=== PATIENT | male | born 1995 | race Caucasian/White ===

== ENCOUNTER 2019-03-21 11:55 | Inpatient (IN) | payer OTHER ==
[2019-03-21 12:55] LABS: Glucose,Whole Blood 405 mg/dL (75-99)
[2019-03-21] MEDS ORDERED: SODIUM CHLORIDE 0.9% 1,000 ML IV STA ×2 (13:00)
[2019-03-21] MEDS ORDERED: SODIUM CHLORIDE 0.9% 1,000 ML IV SCH (13:00)
[2019-03-21] MEDS: ONDANSETRON 4 MG/2 ML VIAL IVP STA ×2 (13:07→18:02)
--- NOTE | 2019-03-21 13:11 | ED ---
Nausea/Vomiting/Diarrhea HPI - General Source: patient, RN notes reviewed, old records reviewed Mode of arrival: ambulatory Limitations: no limitations <Laurita Duarte - Last Filed: 03/21/19 15:21> <Frances Jung - Last Filed: 03/22/19 22:02> - General Chief complaint: Nausea/Vomiting/Diarrhea Stated complaint: vomiting/diabetic Time Seen by Provider: 03/21/19 12:49 - History of Present Illness Initial comments: 23-year-old male presents emergency department today for evaluation for nausea and vomiting, abnormal blood sugars. Patient reports that he isn't vomiting for the past 2 days. He is a diabetic. Type I since age 11. He manages with insulin injections. Patient states that his diabetes has been managed by his primary care doctor Dr. Perez. He states that he thinks that he started having nausea and vomiting after being treated for a dental infection. He reports he followed with a dentist and had upper left molar drained from an abscess. Patient states that he had been swallowing a lot of pus afterwards. Patient states that he last took his blood sugar was 450 prior to arrival. Patient has never been in DKA before. (Laurita Duarte) - Related Data Home Medications Medication Instructions Recorded Confirmed Amoxicillin 500 mg PO QID 03/21/19 03/21/19 Previous Rx's Medication Instructions Recorded Famotidine [Pepcid] 20 mg PO BID #28 tablet 03/22/19 Insulin NPH/Reg Insulin 70/30 12 unit SQ AC-SUPPER #1 vial 03/22/19 [humuLIN 70/30 VIAL] Insulin NPH/Reg Insulin 70/30 18 unit SQ AC-BRKFST #1 vial 03/22/19 [humuLIN 70/30 VIAL] Ondansetron Odt [Zofran Odt] 4 mg PO Q8HR PRN #12 tab 03/22/19 Allergies Allergy/AdvReac Type Severity Reaction Status Date / Time No Known Allergies Allergy Verified 03/21/19 12:47 Review of Systems ROS Other: All systems not noted in ROS Statement are negative. <Laurita Duarte - Last Filed: 03/21/19 15:21> ROS Other: All systems not noted in ROS Statement are negative. <Frances Jung - Last Filed: 03/22/19 22:02> ROS Statement: Those systems with pertinent positive or pertinent negative responses have been documented in the HPI. Past Medical History Past Medical History: Diabetes Mellitus History of Any Multi-Drug Resistant Organisms: None Reported Past Surgical History: No Surgical Hx Reported Past Psychological History: No Psychological Hx Reported Smoking Status: Former smoker Past Alcohol Use History: Occasional Past Drug Use History: Marijuana <Laurita Duarte - Last Filed: 03/21/19 15:21> General Exam Limitations: no limitations General appearance: alert, in no apparent distress Head exam: Present: atraumatic, normocephalic, normal inspection Eye exam: Present: normal appearance, PERRL, EOMI. Absent: scleral icterus, conjunctival injection, periorbital swelling ENT exam: Present: mucous membranes dry, mucous membranes moist, other (No sign of dental abscess at this time.). Absent: normal exam Neck exam: Present: normal inspection. Absent: tenderness, meningismus, lymphadenopathy Respiratory exam: Present: normal lung sounds bilaterally. Absent: respiratory distress, wheezes, rales, rhonchi, stridor Cardiovascular Exam: Present: regular rate, normal rhythm, normal heart sounds. Absent: systolic murmur, diastolic murmur, rubs, gallop, clicks GI/Abdominal exam: Present: soft, normal bowel sounds. Absent: distended, tenderness, guarding, rebound, rigid Extremities exam: Present: normal inspection, full ROM, normal capillary refill. Absent: tenderness, pedal edema, joint swelling, calf tenderness Back exam: Present: normal inspection Neurological exam: Present: alert, oriented X3, CN II-XII intact Psychiatric exam: Present: normal affect, normal mood Skin exam: Present: warm, dry, intact, normal color. Absent: rash <Laurita Duarte - Last Filed: 03/21/19 15:21> - General Exam Comments Initial Comments: 23-year-old male. Alert and oriented. No distress. (Laurita Duarte) Course Vital Signs 03/21/19 03/21/19 12:47 17:17 Temperature 97.9 F 97.8 F Pulse Rate 118 H 105 H Respiratory 18 18 Rate Blood Pressure 127/102 143/79 O2 Sat by Pulse 99 99 Oximetry Medical Decision Making - Lab Data Result diagrams: 03/21/19 13:03 03/21/19 13:03 <Laurita Duarte - Last Filed: 03/21/19 15:21> - Lab Data Result diagrams: 03/22/19 05:59 03/22/19 05:59 <Frances Jung - Last Filed: 03/22/19 22:02> - Medical Decision Making Patient is a 23-year-old male with history of diabetes. Nausea and vomiting for the past 2 days. He rise really dehydrated. Started on IV fluids, concern for DKA. Patient is acetone positive. Was placed on insulin bolus and drip. Patient has a resting comfortably but is tolerating by mouth intake at this time after Zofran. Patient case was discussed with Dr. Jung discussed case with Dr. sarkar's well and Patient will be agreeable to admission. Patient was admitted to telemetry. (Laurita Duarte) I was available for consultation in the emergency department. The history and physical exam were done by the midlevel provider. I was consulted for this kendell ents care. I reviewed the case with the midlevel provider and based on their presentation of the patient, I agree with the assessment, medical decision making and plan of care as documented. I discussed the case with Dr. Malcolm who accepted admission of the patient. Chart was dictated using [employer] dictation software. Attempts were made to correct any dictation errors however some typographical errors may persist. (Frances Jung) - Lab Data Lab Results 03/21/19 03/21/19 03/21/19 Range/Units 12:54 13:03 13:03 WBC (3.8-10.6) k/uL RBC (4.30-5.90) m/uL Hgb (13.0-17.5) gm/dL Hct (39.0-53.0) % MCV (80.0-100.0) fL MCH (25.0-35.0) pg MCHC (31.0-37.0) g/dL RDW (11.5-15.5) % Plt Count (150-450) k/uL Neutrophils % % Lymphocytes % % Monocytes % % Eosinophils % % Basophils % % Neutrophils # (1.3-7.7) k/uL Lymphocytes # (1.0-4.8) k/uL Monocytes # (0-1.0) k/uL Eosinophils # (0-0.7) k/uL Basophils # (0-0.2) k/uL VBG pH 7.47 H (7.31-7.41) VBG pCO2 28 L (37-51) mmHg VBG HCO3 20 L (24-28) mmol/L Sodium 136 L (137-145) mmol/L Potassium 5.1 (3.5-5.1) mmol/L Chloride 94 L (98-107) mmol/L Carbon Dioxide 16 L (22-30) mmol/L Anion Gap 26 mmol/L BUN 25 H (9-20) mg/dL Creatinine 1.12 (0.66-1.25) mg/dL Est GFR (CKD-EPI)AfAm >90 (>60 ml/min/1.73 sqM) Est GFR (CKD-EPI)NonAf >90 (>60 ml/min/1.73 sqM) Glucose 389 H (74-99) mg/dL POC Glucose (mg/dL) 405 H (75-99) mg/dL POC Glu Chemical Process Analyst ID MatosLisbet Lactic Ac Sepsis Rflx Plasma Lactic Acid William (0.7-2.0) mmol/L Calcium 10.4 H (8.4-10.2) mg/dL Total Bilirubin 1.1 (0.2-1.3) mg/dL AST 40 (17-59) U/L ALT 24 (4-49) U/L Alkaline Phosphatase 134 H (38-126) U/L Total Protein 8.2 (6.3-8.2) g/dL Albumin 5.0 (3.5-5.0) g/dL Amylase 53 (30-110) U/L Lipase 25 (23-300) U/L Urine Color Urine Appearance (Clear) Urine pH (5.0-8.0) Ur Specific [place] (1.001-1.035) Urine Protein (Negative) Urine Glucose (UA) (Negative) Urine Ketones (Negative) Urine Blood (Negative) Urine Nitrite (Negative) Urine Bilirubin (Negative) Urine Urobilinogen (<2.0) mg/dL Ur Leukocyte Esterase (Negative) Urine RBC (0-5) /hpf Urine WBC (0-5) /hpf Hyaline Casts (0-2) /lpf Granular Casts (0) /lpf Urine Mucus (None) /hpf Acetone, Qual Positive (Negative) 03/21/19 03/21/19 03/21/19 Range/Units 13:03 13:03 13:03 WBC 18.5 H (3.8-10.6) k/uL RBC 5.59 (4.30-5.90) m/uL Hgb 17.9 H (13.0-17.5) gm/dL Hct 53.6 H (39.0-53.0) % MCV 96.0 (80.0-100.0) fL MCH 32.0 (25.0-35.0) pg MCHC 33.4 (31.0-37.0) g/dL RDW 12.9 (11.5-15.5) % Plt Count 333 (150-450) k/uL Neutrophils % 88 % Lymphocytes % 8 % Monocytes % 3 % Eosinophils % 1 % Basophils % 0 % Neutrophils # 16.2 H (1.3-7.7) k/uL Lymphocytes # 1.5 (1.0-4.8) k/uL Monocytes # 0.5 (0-1.0) k/uL Eosinophils # 0.2 (0-0.7) k/uL Basophils # 0.0 (0-0.2) k/uL VBG pH (7.31-7.41) VBG pCO2 (37-51) mmHg VBG HCO3 (24-28) mmol/L Sodium (137-145) mmol/L Potassium (3.5-5.1) mmol/L Chloride (98-107) mmol/L Carbon Dioxide (22-30) mmol/L Anion Gap mmol/L BUN (9-20) mg/dL Creatinine (0.66-1.25) mg/dL Est GFR (CKD-EPI)AfAm (>60 ml/min/1.73 sqM) Est GFR (CKD-EPI)NonAf (>60 ml/min/1.73 sqM) Glucose (74-99) mg/dL POC Glucose (mg/dL) (75-99) mg/dL POC Glu Chemical Process Analyst ID Lactic Ac Sepsis Rflx Plasma Lactic Acid William 3.4 H* (0.7-2.0) mmol/L Calcium (8.4-10.2) mg/dL Total Bilirubin (0.2-1.3) mg/dL AST (17-59) U/L ALT (4-49) U/L Alkaline Phosphatase (38-126) U/L Total Protein (6.3-8.2) g/dL Albumin (3.5-5.0) g/dL Amylase (30-110) U/L Lipase (23-300) U/L Urine Color Yellow Urine Appearance Clear (Clear) Urine pH 5.5 (5.0-8.0) Ur Specific [place] 1.033 (1.001-1.035) Urine Protein 1+ H (Negative) Urine Glucose (UA) 4+ H (Negative) Urine Ketones 4+ H (Negative) Urine Blood Small H (Negative) Urine Nitrite Negative (Negative) Urine Bilirubin Negative (Negative) Urine Urobilinogen 2.0 (<2.0) mg/dL Ur Leukocyte Esterase Negative (Negative) Urine RBC 7 H (0-5) /hpf Urine WBC 1 (0-5) /hpf Hyaline Casts 9 H (0-2) /lpf Granular Casts 4 (0) /lpf Urine Mucus Rare H (None) /hpf Acetone, Qual (Negative) 03/21/19 03/21/19 Range/Units 13:40 14:44 WBC (3.8-10.6) k/uL RBC (4.30-5.90) m/uL Hgb (13.0-17.5) gm/dL Hct (39.0-53.0) % MCV (80.0-100.0) fL MCH (25.0-35.0) pg MCHC (31.0-37.0) g/dL RDW (11.5-15.5) % Plt Count (150-450) k/uL Neutrophils % % Lymphocytes % % Monocytes % % Eosinophils % % Basophils % % Neutrophils # (1.3-7.7) k/uL Lymphocytes # (1.0-4.8) k/uL Monocytes # (0-1.0) k/uL Eosinophils # (0-0.7) k/uL Basophils # (0-0.2) k/uL VBG pH (7.31-7.41) VBG pCO2 (37-51) mmHg VBG HCO3 (24-28) mmol/L Sodium (137-145) mmol/L Potassium (3.5-5.1) mmol/L Chloride (98-107) mmol/L Carbon Dioxide (22-30) mmol/L Anion Gap mmol/L BUN (9-20) mg/dL Creatinine (0.66-1.25) mg/dL Est GFR (CKD-EPI)AfAm (>60 ml/min/1.73 sqM) Est GFR (CKD-EPI)NonAf (>60 ml/min/1.73 sqM) Glucose (74-99) mg/dL POC Glucose (mg/dL) 215 H (75-99) mg/dL POC Glu Chemical Process Analyst ID Lisbet Matos Lactic Ac Sepsis Rflx Y Plasma Lactic Acid William (0.7-2.0) mmol/L Calcium (8.4-10.2) mg/dL Total Bilirubin (0.2-1.3) mg/dL AST (17-59) U/L ALT (4-49) U/L Alkaline Phosphatase (38-126) U/L Total Protein (6.3-8.2) g/dL Albumin (3.5-5.0) g/dL Amylase (30-110) U/L Lipase (23-300) U/L Urine Color Urine Appearance (Clear) Urine pH (5.0-8.0) Ur Specific [place] (1.001-1.035) Urine Protein (Negative) Urine Glucose (UA) (Negative) Urine Ketones (Negative) Urine Blood (Negative) Urine Nitrite (Negative) Urine Bilirubin (Negative) Urine Urobilinogen (<2.0) mg/dL Ur Leukocyte Esterase (Negative) Urine RBC (0-5) /hpf Urine WBC (0-5) /hpf Hyaline Casts (0-2) /lpf Granular Casts (0) /lpf Urine Mucus (None) /hpf Acetone, Qual (Negative) Disposition Is patient prescribed a controlled substance at d/c from ED?: No Time of Disposition: 15:22 <Laurita Duarte - Last Filed: 03/21/19 15:21> <Frances Jung - Last Filed: 03/22/19 22:02> Clinical Impression: DKA (diabetic ketoacidoses), Dehydration Disposition: ADMITTED IP TO THIS HOSP Condition: Stable
[2019-03-21 13:19] LABS: Basophils % (A) 0 %; Eosinophils # (A) 0.2 k/uL (0-0.7); Eosinophils % (A) 1 %; HCT 53.6 % (39.0-53.0); HGB 17.9 gm/dL (13.0-17.5); Lymphocytes # (A) 1.5 k/uL (1.0-4.8); Lymphocytes % (A) 8 %; MCHC 33.4 g/dL (31.0-37.0); Monocytes # (A) 0.5 k/uL (0-1.0); Monocytes % (A) 3 %; Neutrophils # (A) 16.2 k/uL (1.3-7.7); Neutrophils % (A) 88 %; Platelet Count 333 k/uL (150-450); RBC 5.59 m/uL (4.30-5.90); RDW 12.9 % (11.5-15.5); VBG PH 7.47 (7.31-7.41); WBC 18.5 k/uL (3.8-10.6)
[2019-03-21 13:28] LABS: ALT 24 U/L (4-49); African American GFR (CKD) >90 (>60 ml/min/1.73 sqM); Amylase 53 U/L (30-110); Anion Gap 26 mmol/L; Blood Urea Nitrogen 25 mg/dL (9-20); Calcium 10.4 mg/dL (8.4-10.2); Carbon Dioxide 16 mmol/L (22-30); Chloride 94 mmol/L (98-107); Glucose 389 mg/dL (74-99); Non-African American GFR(CKD) >90 (>60 ml/min/1.73 sqM); Sodium 136 mmol/L (137-145); Total Bilirubin 1.1 mg/dL (0.2-1.3); Total Protein 8.2 g/dL (6.3-8.2)
[2019-03-21 13:32] LABS: Appearance,Urine Clear (Clear); Bilirubin,Urine Negative (Negative); Blood,Urine Small (Negative); Color,Urine Yellow; Glucose,Urine (UA) 4+ (Negative); Granular Casts,Urine 4 /lpf (0); Hyaline Casts,Urine 9 /lpf (0-2); Leukocyte Esterase,Urine Negative (Negative); Mucus,Urine Rare /hpf; Nitrite,Urine Negative (Negative); PH, Urine 5.5 (5.0-8.0); Protein,Urine 1+ (Negative); RBC,Urine 7 /hpf (0-5); Specific Gravity,Urine 1.033 (1.001-1.035); WBC,Urine 1 /hpf (0-5)
[2019-03-21 13:37] LABS: AST 40 U/L (17-59); Alkaline Phosphatase 134 U/L (38-126); Ketones,Urine 4+ (Negative); Potassium 5.1 mmol/L (3.5-5.1)
[2019-03-21] MEDS ORDERED: INSULIN REGULAR BOLUS (FROM DRIP BAG) IV ONE (14:22)
[2019-03-21] MEDS ORDERED: INSULIN REGULAR 100 UNIT in SODIUM CHLORIDE 0.9% 100 ML IV SCH (14:30)
[2019-03-21 14:45] LABS: Glucose,Whole Blood 215 mg/dL (75-99)
[2019-03-21] MEDS: D5-0.45% NACL WITH KCL 20MEQ/L 1,000 ML IV SCH (15:11)
[2019-03-21 15:54] LABS: Glucose,Whole Blood 277 mg/dL (75-99)
[2019-03-21 17:18] LABS: Glucose,Whole Blood 200 mg/dL (75-99)
[2019-03-21 17:20] LABS: African American GFR (CKD) >90 (>60 ml/min/1.73 sqM); Anion Gap 10 mmol/L; Blood Urea Nitrogen 22 mg/dL (9-20); Carbon Dioxide 28 mmol/L (22-30); Chloride 100 mmol/L (98-107); Glucose 202 mg/dL (74-99); Non-African American GFR(CKD) >90 (>60 ml/min/1.73 sqM); Phosphorus 2.2 mg/dL (2.5-4.5); Potassium 3.9 mmol/L (3.5-5.1); Sodium 138 mmol/L (137-145)
[2019-03-21 18:47] LABS: Glucose,Whole Blood 139 mg/dL (75-99)
[2019-03-21 19:45] LABS: Glucose,Whole Blood 140 mg/dL (75-99)
[2019-03-21 21:00] LABS: Glucose,Whole Blood 121 mg/dL (75-99)
[2019-03-21 21:09] LABS: Glucose,Whole Blood 119 mg/dL (75-99)
[2019-03-21 21:51] LABS: African American GFR (CKD) >90 (>60 ml/min/1.73 sqM); Anion Gap 8 mmol/L; Blood Urea Nitrogen 19 mg/dL (9-20); Carbon Dioxide 29 mmol/L (22-30); Chloride 100 mmol/L (98-107); Glucose 131 mg/dL (74-99); Non-African American GFR(CKD) >90 (>60 ml/min/1.73 sqM); Phosphorus 2.3 mg/dL (2.5-4.5); Potassium 3.7 mmol/L (3.5-5.1); Sodium 137 mmol/L (137-145)
[2019-03-21 21:58] LABS: Glucose,Whole Blood 131 mg/dL (75-99)
--- NOTE | 2019-03-21 22:26 | P.HPIM ---
History of Present Illness H&P Date: 03/21/19 Chief Complaint: Nausea and vomiting Patient is a 23-year-old male who follows with Dr. Krishna as an outpatient, with a known history of diabetes type 1 since is 11 and recent history of dental abscess status post drainage on last came to ER with complaints of nausea vomiting and elevated blood sugars. Patient has not been tolerating oral diet for the past 2 days. Patient is having intractable nausea vomiting. Denied any abdominal pain. Patient is also not taking insulin injections has prescribed. Patient states that he takes 10 units of insulin before each meal. denied any long-acting insulin use. He states that he thinks that he started having nausea and vomiting after being treated for a dental infection. He reports he followed with a dentist and had upper left molar drained from an abscess. Patient states that he had been swallowing a lot of pus afterwards. Patient states that he last took his blood sugar was 450 prior to arrival. Patient has never been in DKA before. WBC 18.5, anion gap 20, bicarb 16 and lactic acidosis 3.4 patient was hyperglycemic and acetone positive Review of Systems Constitutional: Patient denies any fever or chills . No generalized weakness or weight loss. Abdomen: Patient does have nausea vomiting and denied abdominal pain. No diarrhea Cardiovascular: Patient denies any chest pain or short of breath no palpitations. Respiratory: patient denied any cough is from production. No shortness of breath Neurologic: Patient denied any numbness or tingling headache. Musculoskeletal: Patient denies any complaints of joint swelling or deformity. Skin: Negative Psychiatric: Negative Endocrine: No heat or cold intolerance. No recent weight gain. Genitourinary: No dysuria or hematuria. All other 14 point ROS negative except the above Past Medical History Past Medical History: Diabetes Mellitus History of Any Multi-Drug Resistant Organisms: None Reported Past Surgical History: No Surgical Hx Reported Past Psychological History: No Psychological Hx Reported Smoking Status: Former smoker Past Alcohol Use History: Occasional Past Drug Use History: Marijuana - Past Family History Father Family Medical History: Diabetes Mellitus Additional Family Medical History / Comment(s): Father from Diabetic complications Medications and Allergies Home Medications Medication Instructions Recorded Confirmed Type Amoxicillin 500 mg PO QID 03/21/19 03/21/19 History Insulin Lispro [Admelog] See Protocol SQ AC-TID 03/21/19 03/21/19 History Allergies Allergy/AdvReac Type Severity Reaction Status Date / Time No Known Allergies Allergy Verified 03/21/19 12:47 Physical Exam Vitals: Vital Signs Temp Pulse Resp BP Pulse Ox 03/21/19 12:47 97.9 F 118 H 18 127/102 99 Intake and Output 03/21/19 03/21/19 03/21/19 06:59 14:59 22:59 Other: Weight 61.235 kg PHYSICAL EXAMINATION: Patient is lying in the bed comfortably, no acute distress, awake alert and oriented. Lethargic and tired. HEENT: Normocephalic. Neck is supple. Pupils reactive. Nostrils clear. Oral cavity is moist. Ears reveal no drainage. Neck reveals no JVD, carotid bruits, or thyromegaly. CHEST EXAMINATION: Trachea is central. Symmetrical expansion. Lung mari clear to auscultation and percussion. CARDIAC: Normal S1, S2 with no gallops. No murmurs ABDOMEN: Soft. Bowel sounds normal. No organomegaly. No abdominal bruits. Extremities: reveal no edema. No clubbing or cyanosis Neurologically awake, alert, oriented x3 with well-coordinated movements. No focal deficits noted Skin: No rash or skin lesions. Psychiatric: Coperative. Nonsuicidal Musculoskeletal: No joint swelling or deformity. Normal range of motion. Results CBC & Chem 7: 03/21/19 13:03 03/21/19 21:23 Labs: Abnormal Lab Results - Last 24 Hours (Table) 03/21/19 03/21/19 03/21/19 Range/Units 12:54 13:03 13:03 WBC (3.8-10.6) k/uL Hgb (13.0-17.5) gm/dL Hct (39.0-53.0) % Neutrophils # (1.3-7.7) k/uL VBG pH 7.47 H (7.31-7.41) VBG pCO2 28 L (37-51) mmHg VBG HCO3 20 L (24-28) mmol/L Sodium 136 L (137-145) mmol/L Chloride 94 L (98-107) mmol/L Carbon Dioxide 16 L (22-30) mmol/L BUN 25 H (9-20) mg/dL Glucose 389 H (74-99) mg/dL POC Glucose (mg/dL) 405 H (75-99) mg/dL Plasma Lactic Acid William (0.7-2.0) mmol/L Calcium 10.4 H (8.4-10.2) mg/dL Alkaline Phosphatase 134 H (38-126) U/L Urine Protein (Negative) Urine Glucose (UA) (Negative) Urine Ketones (Negative) Urine Blood (Negative) Urine RBC (0-5) /hpf Hyaline Casts (0-2) /lpf Urine Mucus (None) /hpf 03/21/19 03/21/19 03/21/19 Range/Units 13:03 13:03 13:03 WBC 18.5 H (3.8-10.6) k/uL Hgb 17.9 H (13.0-17.5) gm/dL Hct 53.6 H (39.0-53.0) % Neutrophils # 16.2 H (1.3-7.7) k/uL VBG pH (7.31-7.41) VBG pCO2 (37-51) mmHg VBG HCO3 (24-28) mmol/L Sodium (137-145) mmol/L Chloride (98-107) mmol/L Carbon Dioxide (22-30) mmol/L BUN (9-20) mg/dL Glucose (74-99) mg/dL POC Glucose (mg/dL) (75-99) mg/dL Plasma Lactic Acid William 3.4 H* (0.7-2.0) mmol/L Calcium (8.4-10.2) mg/dL Alkaline Phosphatase (38-126) U/L Urine Protein 1+ H (Negative) Urine Glucose (UA) 4+ H (Negative) Urine Ketones 4+ H (Negative) Urine Blood Small H (Negative) Urine RBC 7 H (0-5) /hpf Hyaline Casts 9 H (0-2) /lpf Urine Mucus Rare H (None) /hpf 03/21/19 03/21/19 Range/Units 14:44 15:52 WBC (3.8-10.6) k/uL Hgb (13.0-17.5) gm/dL Hct (39.0-53.0) % Neutrophils # (1.3-7.7) k/uL VBG pH (7.31-7.41) VBG pCO2 (37-51) mmHg VBG HCO3 (24-28) mmol/L Sodium (137-145) mmol/L Chloride (98-107) mmol/L Carbon Dioxide (22-30) mmol/L BUN (9-20) mg/dL Glucose (74-99) mg/dL POC Glucose (mg/dL) 215 H 277 H (75-99) mg/dL Plasma Lactic Acid William (0.7-2.0) mmol/L Calcium (8.4-10.2) mg/dL Alkaline Phosphatase (38-126) U/L Urine Protein (Negative) Urine Glucose (UA) (Negative) Urine Ketones (Negative) Urine Blood (Negative) Urine RBC (0-5) /hpf Hyaline Casts (0-2) /lpf Urine Mucus (None) /hpf Thrombosis Risk Factor Assmnt - DVT/VTE Prophylaxis DVT/VTE Prophylaxis: Pharmacologic Prophylaxis ordered Assessment and Plan Assessment: Acute diabetic ketoacidosis Hyperglycemia with uncontrolled diabetes type 1. Patient states that she is not taking insulin as prescribed. AG Metabolic acidosis Lactic acidosis Previous history of smoking Occasional marijuana use Leukocytosis likely reactive and also due to previous recent dental abscess. DVT prophylaxis Plan: Patient will be continued on IV hydration and also on insulin drip. Monitor lites every 4 hours. Continue with potassium supplementation and follow closely. Patient will be continued on antibiotics in the form of clindamycin. Patient is taking amoxicillin as an outpatient. Follow up closely. Discussed treatment plan with the patient and his mother at bedside. Further recommendations based on the clinical course. Time with Patient: Greater than 30
[2019-03-21] MEDS ORDERED: 0.9% NACL WITH KCL 20 MEQ/L 1,000 ML IV ONE (23:12)
[2019-03-22] MEDS: INSULIN DETEMIR (LEVEMIR) 100 UNIT/ML SYR SQ SCH ×2 (01:00→17:13)
[2019-03-22] MEDS: FAMOTIDINE 20 MG/2 ML VIAL IV SCH ×2 (01:06→08:13)
[2019-03-22] MEDS: ONDANSETRON 4 MG/2 ML VIAL IVP PRN ×2 (01:06→08:13)
[2019-03-22] MEDS: CLINDAMYCIN 300 MG in DEXTROSE 5% IN WATER 50 ML IVPB SCH ×4 (01:07→08:13)
[2019-03-22 01:57] LABS: Glucose,Whole Blood 132 mg/dL (75-99)
[2019-03-22] MEDS: D5-0.45% NACL WITH KCL 20MEQ/L 1,000 ML IV SCH (02:25)
[2019-03-22 06:55] LABS: Basophils % (A) 0 %; Eosinophils # (A) 0.1 k/uL (0-0.7); Eosinophils % (A) 0 %; HCT 43.4 % (39.0-53.0); Lymphocytes # (A) 1.8 k/uL (1.0-4.8); Lymphocytes % (A) 10 %; MCH 31.8 pg (25.0-35.0); MCV 96.2 fL (80.0-100.0); Mean Platelet Volume 6.7; Monocytes # (A) 0.9 k/uL (0-1.0); Monocytes % (A) 5 %; Neutrophils # (A) 14.9 k/uL (1.3-7.7); Neutrophils % (A) 83 %; Platelet Count 281 k/uL (150-450); RBC 4.51 m/uL (4.30-5.90)
[2019-03-22 06:58] LABS: Glucose,Whole Blood 91 mg/dL (75-99)
[2019-03-22 06:59] LABS: HGB 14.3 gm/dL (13.0-17.5)
[2019-03-22] MEDS: INSULIN ASPART (NovoLOG) 100 UNIT/ML VIAL SQ SCH ×2 (07:02→12:47)
[2019-03-22 07:03] LABS: African American GFR (CKD) >90 (>60 ml/min/1.73 sqM); Anion Gap 7 mmol/L; Blood Urea Nitrogen 16 mg/dL (9-20); Carbon Dioxide 28 mmol/L (22-30); Chloride 101 mmol/L (98-107); Glucose 102 mg/dL (74-99); Non-African American GFR(CKD) >90 (>60 ml/min/1.73 sqM); Potassium 3.8 mmol/L (3.5-5.1); Sodium 136 mmol/L (137-145)
[2019-03-22 08:10] VITALS: RESP 18
[2019-03-22 12:37] LABS: Glucose,Whole Blood 137 mg/dL (75-99)
[2019-03-22 12:45] VITALS: BMI 19.1
[2019-03-22 15:33] VITALS: BP 118/62; PULSE 79; TEMP 98.9
--- NOTE | 2019-04-05 22:14 | P.DS ---
Providers Date of admission: 03/21/19 15:50 Expected date of discharge: 03/22/19 Attending physician: Chandrakant Garcia Primary care physician: Tomi Ewing [facility] Course: Discharge diagnosis Acute diabetic ketoacidosis. Resolved Hyperglycemia with uncontrolled diabetes type 1. Patient states that he is not taking insulin as prescribed. AG Metabolic acidosis Lactic acidosis Previous history of smoking Occasional marijuana use Leukocytosis likely reactive and also due to previous recent dental abscess. DVT prophylaxis Hospital course Patient is a 23-year-old male who follows with Dr. Krishna as an outpatient, with a known history of diabetes type 1 since 11 and recent history of dental abscess status post drainage on last came to ER with complaints of nausea vomiting and elevated blood sugars. Patient has not been tolerating oral diet for the past 2 days. Patient is having intractable nausea vomiting. Denied any abdominal pain. Patient is also not taking insulin injections has prescribed. Patient states that he takes 10 units of insulin before each meal. denied any long-acting insulin use. He states that he thinks that he started having nausea and vomiting after being treated for a dental infection. He reports he followed with a dentist and had upper left molar drained from an abscess. Patient states that he had been swallowing a lot of pus afterwards. Patient states that he last took his blood sugar was 450 prior to arrival. Patient has never been in DKA before. WBC 18.5, anion gap 20, bicarb 16 and lactic acidosis 3.4 patient was hyperglycemic and acetone positive. Patient was continued on IV hydration and also on insulin drip. Monitor lites every 4 hours. Continue with potassium supplementation and follow closely. Patient was continued on antibiotics in the form of clindamycin. Patient is taking amoxicillin as an outpatient. No complaints of dental pain. Discussed treatment plan with the patient and his mother at bedside. Patient was started on insulin 70/30 due to incidence issues and noncompliance. Otherwise patient is tolerating oral diet. No complaints of chest pain or shortness of breath. No nausea vomiting or abdominal pain. Patient is being discharged home today. Recommended to follow with endocrinology in the clinic. PHYSICAL EXAMINATION: Patient is lying in the bed comfortably, no acute distress, awake alert and oriented.. HEENT: Normocephalic. Neck is supple. Pupils reactive. Nostrils clear. Oral cavity is moist. Ears reveal no drainage. Neck reveals no JVD, carotid bruits, or thyromegaly. CHEST EXAMINATION: Trachea is central. Symmetrical expansion. Lung mari clear to auscultation and percussion. CARDIAC: Normal S1, S2 with no gallops. No murmurs ABDOMEN: Soft. Bowel sounds normal. No organomegaly. No abdominal bruits. Extremities: reveal no edema. No clubbing or cyanosis Neurologically awake, alert, oriented x3 with well-coordinated movements. No focal deficits noted Skin: No rash or skin lesions. Psychiatric: Coperative. Nonsuicidal Musculoskeletal: No joint swelling or deformity. Normal range of motion. Discharge vitals reviewed. Patient Condition at Discharge: Stable Plan - Discharge Summary Discharge Rx Participant: No New Discharge Prescriptions: New Insulin NPH/Reg Insulin 70/30 [humuLIN 70/30 VIAL] 18 unit SQ AC-BRKFST #1 vial Insulin NPH/Reg Insulin 70/30 [humuLIN 70/30 VIAL] 12 unit SQ AC-SUPPER #1 vial Famotidine [Pepcid] 20 mg PO BID #28 tablet Ondansetron Odt [Zofran Odt] 4 mg PO Q8HR PRN #12 tab PRN Reason: Nausea Continue Amoxicillin 500 mg PO QID Discontinued Insulin Lispro [Admelog] See Protocol SQ AC-TID Discharge Medication List Amoxicillin 500 mg PO QID 03/21/19 [History] Famotidine [Pepcid] 20 mg PO BID #28 tablet 03/22/19 [Rx] Insulin NPH/Reg Insulin 70/30 [humuLIN 70/30 VIAL] 12 unit SQ AC-SUPPER #1 vial 03/22/19 [Rx] Insulin NPH/Reg Insulin 70/30 [humuLIN 70/30 VIAL] 18 unit SQ AC-BRKFST #1 vial 03/22/19 [Rx] Ondansetron Odt [Zofran Odt] 4 mg PO Q8HR PRN #12 tab 03/22/19 [Rx] Follow up Appointment(s)/Referral(s): Kaylin Krishna MD [Primary Care Provider] - 1-2 days Discharge Disposition: HOME SELF-CARE
== END 2019-03-22 17:23 | disposition home or self-care (01) | DRG 639 ==
LOC: EC 11:55 → 3SCARD 15:50
PROVIDERS: ADMIT Internal Medicine; ATTEND Internal Medicine
DX: E10.10 Type 1 diabetes mellitus with ketoacidosis without coma (principal); E86.0 Dehydration; D72.829 Elevated white blood cell count, unspecified; Z79.4 Long term (current) use of insulin; Z79.899 Other long term (current) drug therapy; Z87.891 Personal history of nicotine dependence; Z83.3 Family history of diabetes mellitus
CPT/HCPCS: 36415; 80048; 80051; 80053; 81001; 82009; 82150; 82565; 82803; 82947; 83605; 83690; 84100; 84520; 85025; 96361; 96365; 96366; 96375; 99285

== ENCOUNTER 2020-05-03 06:53 | Inpatient (IN) | payer BC ==
[2020-05-03] MEDS ORDERED: SODIUM CHLORIDE 0.9% 1,000 ML IV STA ×2 (07:16→07:20)
[2020-05-03 07:17] LABS: Glucose,Whole Blood >600 mg/dL (75-99)
[2020-05-03] MEDS ORDERED: MORPHINE SULFATE 4 MG/ML SYRINGE IV STA (07:22)
--- NOTE | 2020-05-03 07:23 | ED ---
General Adult HPI - General Chief complaint: Shortness of Breath Stated complaint: DKA, SOB Time Seen by Provider: 05/03/20 07:00 Source: patient Mode of arrival: ambulatory Limitations: no limitations - History of Present Illness Initial comments: Dictation was produced using [employer] dictation software. please excuse any grammatical, word or spelling errors. This patient was cared for during a federal and state declared state of emergency secondary to Covid 19 Chief Complaint: 24-year-old insulin-dependent type 1 diabetic presents with concerns of DKA History of Present Illness: 54-year-old male for the last 4-5 days he has been feeling ill. Patient has been complaining of shortness of breath, diffuse abdominal pain. Patient has history of insulin-dependent diabetes. He states that he is noncompliant with his diabetic medications. Patient initially felt symptoms started 4 days ago after having a meal. He thought that his symptoms were secondary to possible food poisoning. Over the last 48-72 hours his symptoms. So progressed. He has been in DKA before. He does not have a diabetes doctor currently. Denies ever no sore throat. No constitutional symptoms. The ROS documented in this emergency department record has been reviewed and confirmed by me. Those systems with pertinent positive or negative responses have been documented in the HPI. All other systems are other negative and/or noncontributory. PHYSICAL EXAM: General Impression: Alert and oriented x3, tachypneic, smells of acetone HEENT: Normocephalic atraumatic, extra-ocular movements intact, pupils equal and reactive to light bilaterally, mucous membranes moist. Cardiovascular: Heart regular rate and rhythm Chest: 4 word sentences, no retractions, no tachypnea Abdomen: abdomen soft, non-tender, non-distended, no organomegaly Musculoskeletal: Pulses present and equal in all extremities, no peripheral edema Motor: no focal deficits noted Neurological: CN II-XII grossly intact, no focal motor or sensory deficits noted Skin: Intact with no visualized rashes Psych: Normal affect and mood ED course: 24-year-old male clinical presentation consistent with diabetic ketoacidosis.Laboratory evaluation obtained. Leukocytosis 37.1. Is unclear if this is from stress or infectious disease. Metabolic panel shows sodium 132, potassium 6.4, bicarb less than 5, elevated renal markers, glucose of 879, lactic acidosis 7.7, phosphorus of 12.9. Pending venous blood gas. Chest x-ray is nonacute. Patient given 2 boluses of IV fluids and aggressively hydrated with maintenance IV fluids. Patient started on insulin drip. Patient will be admitted to intensive care unit for severe diabetic ketoacidosis. Patient be admitted to the . EKG interpretation: Ventricular rate 133, sinus tachycardia,. Interval 1:30, QRS 104, QTC 450. No VA prolongation, no QTC prolongation, there is hyperacute T waves in precordial leads concerning for hyperkalemia - Related Data Home Medications Medication Instructions Recorded Confirmed Relion Novolin N 20 - 25 units SQ HS 05/03/20 05/03/20 Relion Novolin R 10 - 15 units SQ AC-TID 05/03/20 05/03/20 Allergies Allergy/AdvReac Type Severity Reaction Status Date / Time No Known Allergies Allergy Verified 05/03/20 07:54 Review of Systems ROS Statement: Those systems with pertinent positive or pertinent negative responses have been documented in the HPI. ROS Other: All systems not noted in ROS Statement are negative. Past Medical History Past Medical History: Diabetes Mellitus Additional Past Medical History / Comment(s): 03/19/2019 dental abscess with root canal History of Any Multi-Drug Resistant Organisms: None Reported Past Surgical History: Hernia Repair Past Anesthesia/Blood Transfusion Reactions: No Reported Reaction Past Psychological History: No Psychological Hx Reported Smoking Status: Current every day smoker Past Alcohol Use History: Occasional Past Drug Use History: Marijuana - Past Family History Father Family Medical History: Diabetes Mellitus Additional Family Medical History / Comment(s): Father from Diabetic complications General Exam Limitations: no limitations Course Vital Signs 05/03/20 05/03/20 05/03/20 06:56 08:15 09:13 Temperature 98.4 F 98.4 F Pulse Rate 67 126 H 123 H Respiratory 20 28 H 24 Rate Blood Pressure 110/62 133/70 132/68 O2 Sat by Pulse 92 L 100 100 Oximetry Medical Decision Making - Lab Data Result diagrams: 05/03/20 08:05 05/03/20 08:05 Lab Results 05/03/20 05/03/20 05/03/20 Range/Units 07:11 08:05 08:05 WBC 37.1 H (3.8-10.6) k/uL RBC 4.95 (4.30-5.90) m/uL Hgb 15.7 (13.0-17.5) gm/dL Hct 54.1 H (39.0-53.0) % MCV 109.2 H (80.0-100.0) fL MCH 31.6 (25.0-35.0) pg MCHC 29.0 L (31.0-37.0) g/dL RDW 13.3 (11.5-15.5) % Plt Count 605 H (150-450) k/uL MPV 8.0 Neutrophils % (Manual) 83 % Band Neuts % (Manual) 1 % Lymphocytes % (Manual) 7 % Monocytes % (Manual) 7 % Eosinophils % (Manual) 1 % Basophils % (Manual) 1 % Metamyelocytes % 1 % Myelocytes % 1 % Neutrophils # (Manual) 31.10 H (1.3-7.7) k/uL Lymphocytes # (Manual) 2.60 (1.0-4.8) k/uL Monocytes # (Manual) 2.60 H (0-1.0) k/uL Eosinophils # (Manual) 0.37 (0-0.7) k/uL Basophils # (Manual) 0.37 H (0-0.2) k/uL Metamyelocytes # (Man) 0.37 H (0) k/uL Myelocytes # (Manual) 0.37 H (0) k/uL Nucleated RBCs 0 (0-0) /100 WBC Manual Slide Review Performed Toxic Granulation Present Hypochromasia Marked Poikilocytosis (manual Present Macrocytosis Marked A Sodium 132 L (137-145) mmol/L Potassium 6.4 H* (3.5-5.1) mmol/L Chloride 87 L (98-107) mmol/L Carbon Dioxide <5 L* (22-30) mmol/L Anion Gap mmol/L BUN 24 H (9-20) mg/dL Creatinine 1.87 H (0.66-1.25) mg/dL Est GFR (CKD-EPI)AfAm 57 (>60 ml/min/1.73 sqM) Est GFR (CKD-EPI)NonAf 49 (>60 ml/min/1.73 sqM) Glucose 879 H* (74-99) mg/dL POC Glucose (mg/dL) >600 H (75-99) mg/dL POC Glu Lab Support Service Tech ID Janiya Licea Plasma Lactic Acid William (0.7-2.0) mmol/L Calcium 9.8 (8.4-10.2) mg/dL Phosphorus 12.9 H* (2.5-4.5) mg/dL Magnesium 2.4 H (1.6-2.3) mg/dL Total Bilirubin 0.4 (0.2-1.3) mg/dL AST 25 (17-59) U/L ALT 21 (4-49) U/L Alkaline Phosphatase 133 H (38-126) U/L Total Protein 7.7 (6.3-8.2) g/dL Albumin 5.1 H (3.5-5.0) g/dL 05/03/20 05/03/20 Range/Units 08:05 09:03 WBC (3.8-10.6) k/uL RBC (4.30-5.90) m/uL Hgb (13.0-17.5) gm/dL Hct (39.0-53.0) % MCV (80.0-100.0) fL MCH (25.0-35.0) pg MCHC (31.0-37.0) g/dL RDW (11.5-15.5) % Plt Count (150-450) k/uL MPV Neutrophils % (Manual) % Band Neuts % (Manual) % Lymphocytes % (Manual) % Monocytes % (Manual) % Eosinophils % (Manual) % Basophils % (Manual) % Metamyelocytes % % Myelocytes % % Neutrophils # (Manual) (1.3-7.7) k/uL Lymphocytes # (Manual) (1.0-4.8) k/uL Monocytes # (Manual) (0-1.0) k/uL Eosinophils # (Manual) (0-0.7) k/uL Basophils # (Manual) (0-0.2) k/uL Metamyelocytes # (Man) (0) k/uL Myelocytes # (Manual) (0) k/uL Nucleated RBCs (0-0) /100 WBC Manual Slide Review Toxic Granulation Hypochromasia Poikilocytosis (manual Macrocytosis Sodium (137-145) mmol/L Potassium (3.5-5.1) mmol/L Chloride (98-107) mmol/L Carbon Dioxide (22-30) mmol/L Anion Gap mmol/L BUN (9-20) mg/dL Creatinine (0.66-1.25) mg/dL Est GFR (CKD-EPI)AfAm (>60 ml/min/1.73 sqM) Est GFR (CKD-EPI)NonAf (>60 ml/min/1.73 sqM) Glucose (74-99) mg/dL POC Glucose (mg/dL) >600 H (75-99) mg/dL POC Glu Lab Support Service Tech ID Plasma Lactic Acid William 7.7 H* (0.7-2.0) mmol/L Calcium (8.4-10.2) mg/dL Phosphorus (2.5-4.5) mg/dL Magnesium (1.6-2.3) mg/dL Total Bilirubin (0.2-1.3) mg/dL AST (17-59) U/L ALT (4-49) U/L Alkaline Phosphatase (38-126) U/L Total Protein (6.3-8.2) g/dL Albumin (3.5-5.0) g/dL Critical Care Time Critical Care Time: Yes Total Critical Care Time: 33 Disposition Clinical Impression: DKA (diabetic ketoacidoses) Disposition: ADMITTED IP TO THIS [facility] Condition: Critical Referrals: Kaylin Krishna MD [Primary Care Provider] - 1-2 days Decision Time: 09:15
--- NOTE | 2020-05-03 07:38 | XR ---
EXAMINATION TYPE: XR chest 1V portable DATE OF EXAM: 05/03/2020 COMPARISON: 07/15/2013 INDICATION: Severe short of breath TECHNIQUE: Single frontal view of the chest is obtained. FINDINGS: The heart size is normal. The pulmonary vasculature is normal. The lungs are clear. No pneumothorax is evident. IMPRESSION: 1. No acute pulmonary process.
[2020-05-03 08:24] LABS: HCT 54.1 % (39.0-53.0); HGB 15.7 gm/dL (13.0-17.5); Hypochromasia Marked; MCH 31.6 pg (25.0-35.0); MCV 109.2 fL (80.0-100.0); Macrocytosis Marked; Platelet Count 605 k/uL (150-450); RBC 4.95 m/uL (4.30-5.90); RDW 13.3 % (11.5-15.5); WBC 37.1 k/uL (3.8-10.6)
[2020-05-03 08:34] LABS: ALT 21 U/L (4-49); AST 25 U/L (17-59); African American GFR (CKD) 57 (>60 ml/min/1.73 sqM); Albumin 5.1 g/dL (3.5-5.0); Alkaline Phosphatase 133 U/L (38-126); Blood Urea Nitrogen 24 mg/dL (9-20); Calcium 9.8 mg/dL (8.4-10.2); Chloride 87 mmol/L (98-107); Magnesium 2.4 mg/dL (1.6-2.3); Non-African American GFR(CKD) 49 (>60 ml/min/1.73 sqM); Sodium 132 mmol/L (137-145); Total Bilirubin 0.4 mg/dL (0.2-1.3); Total Protein 7.7 g/dL (6.3-8.2)
[2020-05-03 08:50] LABS: Carbon Dioxide <5 mmol/L (22-30); Glucose 879 mg/dL (74-99); Phosphorus 12.9 mg/dL (2.5-4.5)
[2020-05-03] MEDS ORDERED: INSULIN REGULAR BOLUS (FROM DRIP BAG) IV ONE (08:50)
[2020-05-03 08:51] LABS: Potassium 6.4 mmol/L (3.5-5.1)
[2020-05-03 08:52] LABS: Band Neutrophils % 1 %; Metamyelocytes # (M) 0.37 k/uL (0); Metamyelocytes % 1 %; Nucleated Red Blood Cells 0 /100 WBC (0-0)
[2020-05-03 08:53] LABS: Basophils # (M) 0.37 k/uL (0-0.2); Eosinophils # (M) 0.37 k/uL (0-0.7); Myelocytes # (M) 0.37 k/uL (0); Myelocytes % 1 %; Neutrophils % (M) 83 %; Poikilocytosis (M) Present; Total Cells Counted 200; Toxic Granulation Present
[2020-05-03 09:05] LABS: Glucose,Whole Blood >600 mg/dL (75-99)
[2020-05-03] MEDS ORDERED: NALOXONE 0.4 MG/ML 1 ML VIAL IV PRN (09:13)
[2020-05-03] MEDS: SODIUM CHLORIDE 0.9% 1,000 ML IV SCH ×2 (09:17→13:28)
[2020-05-03] MEDS: INSULIN REGULAR 100 UNIT in SODIUM CHLORIDE 0.9% 100 ML IV SCH (09:20)
[2020-05-03 09:26] LABS: VBG PH 6.9 (7.31-7.41)
[2020-05-03 10:02] LABS: Glucose,Whole Blood >600 mg/dL (75-99)
[2020-05-03 11:01] LABS: Glucose,Whole Blood 593 mg/dL (75-99)
[2020-05-03 11:32] LABS: Glucose,Whole Blood 516 mg/dL (75-99)
[2020-05-03 12:23] LABS: Glucose,Whole Blood 456 mg/dL (75-99)
[2020-05-03 13:27] VITALS: BMI 21.7
[2020-05-03 13:33] LABS: Glucose,Whole Blood 301 mg/dL (75-99)
[2020-05-03] MEDS ORDERED: DEXTROSE 5%-0.9% NACL 1,000 ML IV SCH (13:45)
[2020-05-03 13:47] LABS: Potassium 4.4 mmol/L (3.5-5.1)
--- NOTE | 2020-05-03 14:12 | P.HPIM ---
History of Present Illness Patient is a pleasant 54-year-old male came in with comments of severe abdominal pain nausea vomiting for going on for 2 days. 2 days ago patient had a large meal after which his symptoms started and believed he has food poisoning. Although his symptoms progressed regards worse with multiple episodes of nausea vomiting and abdominal pain and epigastric area. Patient takes reveal insulin around 10-20 units does usually do carb counting. Patient has not been complaint with his long-acting insulin because of the insurance issues. Patient denied any dysuria cough no evidence of infection patient does have leukocytosis.. Patient the is found to be severely acidotic to Tachycardic on admission received fluid resuscitation presently receiving the IV fluids at 200 mL/h with IV insulin, one set of blood sugars come down patient will be switched to D5 half-normal saline with potassium depending on his a repeat potassium lev els. Patient was hyperkalemic on admission secondary to acidosis and diabetic ketoacidosis. Was a anion gap resolves patient was started on long-acting insulin after which patient fluids will be switched to normal saline along with pre-meal insulin around 12 units with each meal along with sliding scale. is supposed to take 50 units of long-acting insulin. He is to follow with an manifest/order organizer print orders. Patient does have early stages of diabetic peripheral neuropathy as well as retinopathy. Review of Systems REVIEW OF SYSTEMS: CONSTITUTIONAL: Patient is extremely fatigued HEENT: No recent visual problems or hearing problems. Denied any sore throat. CARDIOVASCULAR: No chest pain, orthopnea, PND, no palpitations, no syncope. PULMONARY: No shortness of breath, no cough, no hemoptysis. GASTROINTESTINAL: No diarrhea, no nausea, no vomiting, no abdominal pain. NEUROLOGICAL: No headaches, no weakness, no numbness. HEMATOLOGICAL: Denies any bleeding or petechiae. GENITOURINARY: Denies any burning micturition, frequency, or urgency. MUSCULOSKELETAL/RHEUMATOLOGICAL: Denies any joint pain, swelling, ENDOCRINE: Denies any polyuria or polydipsia. The rest of the 14-point review of systems is negative. Past Medical History Past Medical History: Diabetes Mellitus Additional Past Medical History / Comment(s): IDDM type I, DKA, occasional neuropathy bilateral hands/feet, decreased renal function at times. History of Any Multi-Drug Resistant Organisms: None Reported Past Surgical History: Hernia Repair Past Anesthesia/Blood Transfusion Reactions: No Reported Reaction Smoking Status: Current every day smoker - Past Family History Father Family Medical History: Asthma, Diabetes Mellitus Additional Family Medical History / Comment(s): Father from Diabetic complications Mother Family Medical History: No Reported History Medications and Allergies Home Medications Medication Instructions Recorded Confirmed Type Relion Novolin N 20 - 25 units SQ HS 05/03/20 05/03/20 History Relion Novolin R 10 - 15 units SQ AC-TID 05/03/20 05/03/20 History Allergies Allergy/AdvReac Type Severity Reaction Status Date / Time No Known Allergies Allergy Verified 05/03/20 07:54 Physical Exam Vitals: Vital Signs Temp Pulse Resp BP Pulse Ox 05/03/20 14:00 134 H 18 110/70 98 05/03/20 13:00 129 H 14 122/72 97 05/03/20 12:00 126 H 23 128/78 98 05/03/20 11:31 97.6 F 135 H 28 H 130/76 98 05/03/20 11:00 97.9 F 131 H 23 131/79 99 05/03/20 10:05 98.1 F 129 H 24 145/76 100 05/03/20 09:13 98.4 F 123 H 24 132/68 100 05/03/20 08:15 126 H 28 H 133/70 100 05/03/20 06:56 98.4 F 67 20 110/62 92 L Intake and Output 05/02/20 05/03/20 05/03/20 22:59 06:59 14:59 Intake Total 1026.074 Output Total 1150 Balance -123.926 Intake: Amount of Fluid Infused ( 6.187 ml) Intake, IV Titration 1019.887 Amount Insulin Regular 100 unit 19.887 In Sodium Chloride 0.9% 100 ml @ 0.1 UNITS/KG/HR 6.185 mls/hr IV .[id number] ALEISHA Rx#:[id number] Sodium Chloride 0.9% 1, 1000 000 ml @ 200 mls/hr IV . Q5H ALEISHA Rx#:[id number] Output: Urine 1150 Other: Voiding Method Urinal Weight 61.235 kg 61.235 kg PHYSICAL EXAMINATION: GENERAL: The patient is alert and oriented x3, not in any acute distress. Well developed, well nourished. HEENT: Pupils are round and equally reacting to light. EOMI. No scleral icterus. No conjunctival pallor. Normocephalic, atraumatic. No pharyngeal erythema. No thyromegaly. CARDIOVASCULAR: S1 and S2 present. No murmurs, rubs, or gallops. Tachycardic PULMONARY: Chest is clear to auscultation, no wheezing or crackles. ABDOMEN: Soft, nontender, nondistended, normoactive bowel sounds. No palpable organomegaly. MUSCULOSKELETAL: No joint swelling or deformity. EXTREMITIES: No cyanosis, clubbing, or pedal edema. NEUROLOGICAL: Gross neurological examination did not reveal any focal deficits. SKIN: No rashes. Results CBC & Chem 7: 05/03/20 08:05 05/03/20 13:00 Labs: Abnormal Lab Results - Last 24 Hours (Table) 05/03/20 05/03/20 05/03/20 Range/Units 07:11 08:05 08:05 WBC 37.1 H (3.8-10.6) k/uL Hct 54.1 H (39.0-53.0) % MCV 109.2 H (80.0-100.0) fL MCHC 29.0 L (31.0-37.0) g/dL Plt Count 605 H (150-450) k/uL Neutrophils # (Manual) 31.10 H (1.3-7.7) k/uL Monocytes # (Manual) 2.60 H (0-1.0) k/uL Basophils # (Manual) 0.37 H (0-0.2) k/uL Metamyelocytes # (Man) 0.37 H (0) k/uL Myelocytes # (Manual) 0.37 H (0) k/uL Macrocytosis Marked A VBG pH (7.31-7.41) VBG pCO2 (37-51) mmHg VBG HCO3 (24-28) mmol/L Sodium 132 L (137-145) mmol/L Potassium 6.4 H* (3.5-5.1) mmol/L Chloride 87 L (98-107) mmol/L Carbon Dioxide <5 L* (22-30) mmol/L BUN 24 H (9-20) mg/dL Creatinine 1.87 H (0.66-1.25) mg/dL Glucose 879 H* (74-99) mg/dL POC Glucose (mg/dL) >600 H (75-99) mg/dL Plasma Lactic Acid William (0.7-2.0) mmol/L Phosphorus 12.9 H* (2.5-4.5) mg/dL Magnesium 2.4 H (1.6-2.3) mg/dL Alkaline Phosphatase 133 H (38-126) U/L Albumin 5.1 H (3.5-5.0) g/dL 05/03/20 05/03/20 05/03/20 Range/Units 08:05 08:05 09:03 WBC (3.8-10.6) k/uL Hct (39.0-53.0) % MCV (80.0-100.0) fL MCHC (31.0-37.0) g/dL Plt Count (150-450) k/uL Neutrophils # (Manual) (1.3-7.7) k/uL Monocytes # (Manual) (0-1.0) k/uL Basophils # (Manual) (0-0.2) k/uL Metamyelocytes # (Man) (0) k/uL Myelocytes # (Manual) (0) k/uL Macrocytosis VBG pH 6.90 L* (7.31-7.41) VBG pCO2 16 L* (37-51) mmHg VBG HCO3 3 L* (24-28) mmol/L Sodium (137-145) mmol/L Potassium (3.5-5.1) mmol/L Chloride (98-107) mmol/L Carbon Dioxide (22-30) mmol/L BUN (9-20) mg/dL Creatinine (0.66-1.25) mg/dL Glucose (74-99) mg/dL POC Glucose (mg/dL) >600 H (75-99) mg/dL Plasma Lactic Acid William 7.7 H* (0.7-2.0) mmol/L Phosphorus (2.5-4.5) mg/dL Magnesium (1.6-2.3) mg/dL Alkaline Phosphatase (38-126) U/L Albumin (3.5-5.0) g/dL 05/03/20 05/03/20 05/03/20 Range/Units 10:01 11:00 11:05 WBC (3.8-10.6) k/uL Hct (39.0-53.0) % MCV (80.0-100.0) fL MCHC (31.0-37.0) g/dL Plt Count (150-450) k/uL Neutrophils # (Manual) (1.3-7.7) k/uL Monocytes # (Manual) (0-1.0) k/uL Basophils # (Manual) (0-0.2) k/uL Metamyelocytes # (Man) (0) k/uL Myelocytes # (Manual) (0) k/uL Macrocytosis VBG pH (7.31-7.41) VBG pCO2 (37-51) mmHg VBG HCO3 (24-28) mmol/L Sodium (137-145) mmol/L Potassium (3.5-5.1) mmol/L Chloride (98-107) mmol/L Carbon Dioxide (22-30) mmol/L BUN (9-20) mg/dL Creatinine (0.66-1.25) mg/dL Glucose (74-99) mg/dL POC Glucose (mg/dL) >600 H 593 H (75-99) mg/dL Plasma Lactic Acid William 2.3 H* (0.7-2.0) mmol/L Phosphorus (2.5-4.5) mg/dL Magnesium (1.6-2.3) mg/dL Alkaline Phosphatase (38-126) U/L Albumin (3.5-5.0) g/dL 05/03/20 05/03/20 05/03/20 Range/Units 11:30 12:22 13:00 WBC (3.8-10.6) k/uL Hct (39.0-53.0) % MCV (80.0-100.0) fL MCHC (31.0-37.0) g/dL Plt Count (150-450) k/uL Neutrophils # (Manual) (1.3-7.7) k/uL Monocytes # (Manual) (0-1.0) k/uL Basophils # (Manual) (0-0.2) k/uL Metamyelocytes # (Man) (0) k/uL Myelocytes # (Manual) (0) k/uL Macrocytosis VBG pH (7.31-7.41) VBG pCO2 (37-51) mmHg VBG HCO3 (24-28) mmol/L Sodium (137-145) mmol/L Potassium (3.5-5.1) mmol/L Chloride (98-107) mmol/L Carbon Dioxide 6 L* (22-30) mmol/L BUN 28 H (9-20) mg/dL Creatinine 1.43 H (0.66-1.25) mg/dL Glucose 374 H (74-99) mg/dL POC Glucose (mg/dL) 516 H 456 H (75-99) mg/dL Plasma Lactic Acid William (0.7-2.0) mmol/L Phosphorus 5.0 H (2.5-4.5) mg/dL Magnesium (1.6-2.3) mg/dL Alkaline Phosphatase (38-126) U/L Albumin (3.5-5.0) g/dL 05/03/20 Range/Units 13:31 WBC (3.8-10.6) k/uL Hct (39.0-53.0) % MCV (80.0-100.0) fL MCHC (31.0-37.0) g/dL Plt Count (150-450) k/uL Neutrophils # (Manual) (1.3-7.7) k/uL Monocytes # (Manual) (0-1.0) k/uL Basophils # (Manual) (0-0.2) k/uL Metamyelocytes # (Man) (0) k/uL Myelocytes # (Manual) (0) k/uL Macrocytosis VBG pH (7.31-7.41) VBG pCO2 (37-51) mmHg VBG HCO3 (24-28) mmol/L Sodium (137-145) mmol/L Potassium (3.5-5.1) mmol/L Chloride (98-107) mmol/L Carbon Dioxide (22-30) mmol/L BUN (9-20) mg/dL Creatinine (0.66-1.25) mg/dL Glucose (74-99) mg/dL POC Glucose (mg/dL) 301 H (75-99) mg/dL Plasma Lactic Acid William (0.7-2.0) mmol/L Phosphorus (2.5-4.5) mg/dL Magnesium (1.6-2.3) mg/dL Alkaline Phosphatase (38-126) U/L Albumin (3.5-5.0) g/dL Thrombosis Risk Factor Assmnt - Choose All That Apply Any of the Below Risk Factors Present?: No Other Risk Factors: No Other congenital or acquired thrombophilia - If yes, enter type in comment: No Thrombosis Risk Factor Assessment Level: Very Low Risk Assessment and Plan Plan: -Diabetic ketoacidosis: Continue with IV insulin patient was switched to D5 half-normal with the potassium supplementation considering the recent electrolytes. Extensive counseling regarding compliance with diuretic medications was provided discussed with social work regarding insurance coverage for long-acting insulin. -Anion gap and folic acidosis secondary to diabetic ketoacidosis and lactic acidosis secondary to dehydration -leukocytosis reactive without any evidence of infection -Thrombocytosis: Secondary to dehydration and hemoconcentration I from pseudohyponatremia secondary to hyperglycemia -Acute renal failure secondary to dehydration feel azotemia -Type 1 diabetes mellitus Happened ibuprofen neuropathy -Diabetic retinopathy -GI prophylaxis with the Protonix -DVT prophylaxis and early ambulation
[2020-05-03] MEDS ORDERED: PANTOPRAZOLE 40 MG/10 ML VIAL IVP SCH (14:15)
[2020-05-03] MEDS: D5-0.45% NACL WITH KCL 20MEQ/L 1,000 ML IV SCH ×2 (14:27→20:54)
[2020-05-03 14:35] LABS: Glucose,Whole Blood 218 mg/dL (75-99)
[2020-05-03 15:46] LABS: Glucose,Whole Blood 158 mg/dL (75-99)
[2020-05-03 17:01] LABS: Glucose,Whole Blood 146 mg/dL (75-99)
[2020-05-03 17:35] LABS: Hemoglobin A1C 11.9 % (4.0-6.0)
[2020-05-03 18:00] LABS: African American GFR (CKD) >90 (>60 ml/min/1.73 sqM); Anion Gap 12 mmol/L; Blood Urea Nitrogen 23 mg/dL (9-20); Carbon Dioxide 15 mmol/L (22-30); Chloride 112 mmol/L (98-107); Glucose 172 mg/dL (74-99); Non-African American GFR(CKD) >90 (>60 ml/min/1.73 sqM); Phosphorus 1.8 mg/dL (2.5-4.5); Potassium 4.4 mmol/L (3.5-5.1); Sodium 139 mmol/L (137-145)
[2020-05-03 18:06] LABS: Glucose,Whole Blood 147 mg/dL (75-99)
[2020-05-03] MEDS ORDERED: Phosphorus Replacement Protoco 1 EACH MISC MISCELLANE PRN (18:28)
[2020-05-03] MEDS: SODIUM PHOSPHATE 10 MMOL in SODIUM CHLORIDE 0.9% 250 ML IVPB SCH ×2 (18:48→20:54)
[2020-05-03 19:11] LABS: Glucose,Whole Blood 198 mg/dL (75-99)
[2020-05-03 20:02] LABS: Glucose,Whole Blood 261 mg/dL (75-99)
[2020-05-03 21:09] LABS: African American GFR (CKD) >90 (>60 ml/min/1.73 sqM); Anion Gap 19 mmol/L; Blood Urea Nitrogen 18 mg/dL (9-20); Chloride 109 mmol/L (98-107); Glucose 311 mg/dL (74-99); Non-African American GFR(CKD) >90 (>60 ml/min/1.73 sqM); Phosphorus 3.9 mg/dL (2.5-4.5); Potassium 4.9 mmol/L (3.5-5.1); Sodium 137 mmol/L (137-145)
[2020-05-03 21:20] LABS: Carbon Dioxide 9 mmol/L (22-30)
[2020-05-03 22:05] LABS: Glucose,Whole Blood 265 mg/dL (75-99)
[2020-05-03 23:03] LABS: Glucose,Whole Blood 267 mg/dL (75-99)
[2020-05-04 00:34] LABS: Glucose,Whole Blood 228 mg/dL (75-99)
[2020-05-04 01:48] LABS: African American GFR (CKD) >90 (>60 ml/min/1.73 sqM); Anion Gap 8 mmol/L; Blood Urea Nitrogen 14 mg/dL (9-20); Carbon Dioxide 19 mmol/L (22-30); Chloride 108 mmol/L (98-107); Glucose 241 mg/dL (74-99); Non-African American GFR(CKD) >90 (>60 ml/min/1.73 sqM); Phosphorus 2.5 mg/dL (2.5-4.5); Potassium 4.1 mmol/L (3.5-5.1); Sodium 135 mmol/L (137-145)
[2020-05-04] MEDS ORDERED: SODIUM CHLORIDE 0.9% 1,000 ML IV SCH (02:00)
[2020-05-04] MEDS ORDERED: INSULIN DETEMIR (LEVEMIR) 100 UNIT/ML SYR SQ ONE (02:00)
[2020-05-04] MEDS: INSULIN REGULAR 100 UNIT in SODIUM CHLORIDE 0.9% 100 ML IV SCH (02:13)
[2020-05-04 06:21] LABS: Glucose,Whole Blood 104 mg/dL (75-99)
[2020-05-04] MEDS: INSULIN ASPART (NovoLOG) 100 UNIT/ML VIAL SQ SCH ×4 (06:54→12:29)
[2020-05-04] MEDS ORDERED: PANTOPRAZOLE 40 MG TABLET PO SCH (07:30)
[2020-05-04 08:23] VITALS: BP 134/87; PULSE 108; RESP 22; TEMP 97.7
[2020-05-04] MEDS ORDERED: ACETAMINOPHEN TAB 500 MG TAB PO PRN (08:53)
[2020-05-04 09:12] LABS: ALT 10 U/L (4-49); AST 22 U/L (17-59); African American GFR (CKD) >90 (>60 ml/min/1.73 sqM); Albumin 3.2 g/dL (3.5-5.0); Alkaline Phosphatase 80 U/L (38-126); Anion Gap 5 mmol/L; Blood Urea Nitrogen 11 mg/dL (9-20); Calcium 8.5 mg/dL (8.4-10.2); Carbon Dioxide 24 mmol/L (22-30); Chloride 107 mmol/L (98-107); Glucose 87 mg/dL (74-99); Non-African American GFR(CKD) >90 (>60 ml/min/1.73 sqM); Phosphorus 1.9 mg/dL (2.5-4.5); Potassium 3.7 mmol/L (3.5-5.1); Sodium 136 mmol/L (137-145); Total Bilirubin 0.4 mg/dL (0.2-1.3); Total Protein 5.5 g/dL (6.3-8.2)
[2020-05-04 09:36] LABS: Basophils % (A) 0 %; Eosinophils % (A) 0 %; HCT 38.6 % (39.0-53.0); Lymphocytes # (A) 1.4 k/uL (1.0-4.8); Lymphocytes % (A) 7 %; MCH 31.5 pg (25.0-35.0); MCHC 32.9 g/dL (31.0-37.0); Mean Platelet Volume 6.6; Monocytes # (A) 0.9 k/uL (0-1.0); Monocytes % (A) 5 %; Neutrophils # (A) 16.4 k/uL (1.3-7.7); Neutrophils % (A) 87 %; Platelet Count 349 k/uL (150-450); RBC 4.03 m/uL (4.30-5.90); RDW 13.7 % (11.5-15.5); WBC 18.8 k/uL (3.8-10.6)
[2020-05-04 09:46] LABS: HGB 12.7 gm/dL (13.0-17.5)
[2020-05-04 09:47] LABS: MCV 95.9 fL (80.0-100.0)
[2020-05-04 11:49] LABS: Glucose,Whole Blood 47 mg/dL (75-99)
[2020-05-04 12:08] LABS: Glucose,Whole Blood 75 mg/dL (75-99)
--- NOTE | 2020-05-04 12:40 | P.CNPUL ---
History of Present Illness Consult date: 05/04/20 Requesting physician: Alexander Marcos Reason for consult: other (Acute DKA) Chief complaint: Abdominal pain and nausea and vomiting for 2 days History of present illness: This is a 24-year-old white male with history of type 1 diabetes, noncompliant with his insulin, patient presented to the ER yesterday with 2 days history of nausea vomiting and abdominal pain. In the ER, patient was found to have significantly elevated blood sugar, and he was clearly in diabetic ketoacidosis. Patient was treated as per protocol. Given multiple fluid boluses started on IV fluid at 200 mL per hour in the form of 0.9 normal saline, started on insulin, admitted to the ICU, and I was asked to see him on consultation. Patient was clearly hyperkalemic and acidotic on admission. He had a significant anion gap metabolic acidosis. Today the patient is feeling better, his anion gap is closed, his blood sugar is in the 100 range, patient is off insulin drip, and he is on 0.9 normal saline at 100 mL per hour. Patient has no headache, no blurred vision, no dizziness, no nausea no vomiting no abdominal pain. Review of Systems CONSTITUTIONAL: Profound weakness and fatigue HEENT: Negative but the patient is known to have history of diabetic neuropathy and retinopathy CARDIOVASCULAR: Negative PULMONARY: Negative GASTROINTESTINAL: Nausea vomiting abdominal pain on presentation NEUROLOGICAL: Diabetic retinopathy and neuropathy HEMATOLOGICAL: Negative GENITOURINARY: Negative MUSCULOSKELETAL/RHEUMATOLOGICAL: Negative Endocrine: As noted in HPI Past Medical History Past Medical History: Diabetes Mellitus Additional Past Medical History / Comment(s): IDDM type I, DKA, occasional neuropathy bilateral hands/feet, decreased renal function at times. History of Any Multi-Drug Resistant Organisms: None Reported Past Surgical History: Hernia Repair Past Anesthesia/Blood Transfusion Reactions: No Reported Reaction Smoking Status: Current every day smoker - Past Family History Father Family Medical History: Asthma, Diabetes Mellitus Additional Family Medical History / Comment(s): Father from Diabetic complications Mother Family Medical History: No Reported History Medications and Allergies Home Medications Medication Instructions Recorded Confirmed Type Relion Novolin N 20 - 25 units SQ HS 05/03/20 05/03/20 History Insulin Glargine,Hum.rec.anlog 40 unit SQ HS #5 pen 05/04/20 Rx [Basaglar Kwikpen U-100] Omeprazole [PriLOSEC] 40 mg PO AC-BRKFST #14 capsule. 05/04/20 Rx Allergies Allergy/AdvReac Type Severity Reaction Status Date / Time No Known Allergies Allergy Verified 05/03/20 07:54 Physical Exam Vitals: Vital Signs Temp Pulse Pulse Resp BP BP Pulse Ox 05/04/20 08:00 97.7 F 108 H 22 134/87 97 05/04/20 06:00 101 H 15 134/70 96 05/04/20 05:00 105 H 13 128/77 95 05/04/20 04:00 98.7 F 96 20 117/79 96 05/04/20 03:00 93 19 123/76 95 05/04/20 02:00 105 H 17 131/77 95 05/04/20 01:00 120 H 21 115/71 96 05/04/20 00:30 111 H 20 95 05/04/20 00:00 98.6 F 110 H 21 143/90 95 05/03/20 23:00 112 H 13 138/88 96 05/03/20 22:00 117 H 16 146/86 96 05/03/20 21:00 118 H 12 131/75 97 05/03/20 20:00 98.8 F 124 H 23 123/68 96 05/03/20 19:00 124 H 19 128/75 94 L 05/03/20 18:00 124 H 23 124/60 95 05/03/20 17:00 98.8 F 131 H 20 112/69 96 05/03/20 16:00 97.8 F 131 H 23 125/79 94 L 05/03/20 15:00 128 H 25 H 118/76 95 05/03/20 14:00 134 H 18 110/70 98 05/03/20 13:00 129 H 14 122/72 97 Intake and Output 05/03/20 05/04/20 05/04/20 22:59 06:59 14:59 Intake Total 6669.155 8858 Output Total 750 600 Balance 987.032 525 Intake: Intake, IV Titration 5687.598 4803 Amount D5-0.45% NaCl with KCl 1200 750 20Meq/l 1,000 ml @ 150 mls/hr IV .[id number] Rx# :[id number] Insulin Regular 100 unit 37.032 In Sodium Chloride 0.9% 100 ml @ 0.1 UNITS/KG/HR 6.185 mls/hr IV .[id number] [facility] Rx#:[id number] Sodium Chloride 0.9% 1, 375 000 ml @ 125 mls/hr IV . Q8H [facility] Rx#:[id number] Sodium Phosphate 10 mmol 500 In Sodium Chloride 0.9% 250 ml @ 125 mls/hr IVPB Q2H [facility] Rx#:[id number] Output: Urine 750 600 Other: Voiding Method Urinal Urinal Toilet Weight 65.2 kg Physical Exam: Revealed a 24-year-old white male in no distress. Head: Atraumatic normocephalic. HEENT:[Neck is supple.] [No neck masses.] [No thyromegaly.] [No JVD.] Chest: [Clear throughout, no crackles, no rhonchi, no wheezes.] Cardiac Exam: [Normal S1 and S2, no S3 gallop, no murmur.] Abdomen: [Soft, nontender, no megaly, no rebound, no guarding, normal bowel sounds.] Extremities: [No clubbing, no edema, no cyanosis.] Neurological Exam: [No focal neurologic deficit.] Alert and oriented 3. Psychiatric: Normal mood affect and normal mental status examination. Skin: No rashes. Results - Laboratory Findings CBC and BMP: 05/04/20 08:16 05/04/20 08:16 Abnormal lab findings: Abnormal Labs 05/03/20 05/03/20 05/03/20 07:11 08:05 08:05 WBC 37.1 H RBC Hgb Hct 54.1 H MCV 109.2 H MCHC 29.0 L Plt Count 605 H Neutrophils # Neutrophils # (Manual) 31.10 H Monocytes # (Manual) 2.60 H Basophils # (Manual) 0.37 H Metamyelocytes # (Man) 0.37 H Myelocytes # (Manual) 0.37 H Macrocytosis Marked A VBG pH VBG pCO2 VBG HCO3 Sodium 132 L Potassium 6.4 H* Chloride 87 L Carbon Dioxide <5 L* BUN 24 H Creatinine 1.87 H Glucose 879 H* POC Glucose (mg/dL) >600 H Hemoglobin A1c Plasma Lactic Acid William Phosphorus 12.9 H* Magnesium 2.4 H Alkaline Phosphatase 133 H Total Protein Albumin 5.1 H 05/03/20 05/03/20 05/03/20 08:05 08:05 08:05 WBC RBC Hgb Hct MCV MCHC Plt Count Neutrophils # Neutrophils # (Manual) Monocytes # (Manual) Basophils # (Manual) Metamyelocytes # (Man) Myelocytes # (Manual) Macrocytosis VBG pH 6.90 L* VBG pCO2 16 L* VBG HCO3 3 L* Sodium Potassium Chloride Carbon Dioxide BUN Creatinine Glucose POC Glucose (mg/dL) Hemoglobin A1c 11.9 H Plasma Lactic Acid William 7.7 H* Phosphorus Magnesium Alkaline Phosphatase Total Protein Albumin 05/03/20 05/03/20 05/03/20 09:03 10:01 11:00 WBC RBC Hgb Hct MCV MCHC Plt Count Neutrophils # Neutrophils # (Manual) Monocytes # (Manual) Basophils # (Manual) Metamyelocytes # (Man) Myelocytes # (Manual) Macrocytosis VBG pH VBG pCO2 VBG HCO3 Sodium Potassium Chloride Carbon Dioxide BUN Creatinine Glucose POC Glucose (mg/dL) >600 H >600 H 593 H Hemoglobin A1c Plasma Lactic Acid William Phosphorus Magnesium Alkaline Phosphatase Total Protein Albumin 05/03/20 05/03/20 05/03/20 11:05 11:30 12:22 WBC RBC Hgb Hct MCV MCHC Plt Count Neutrophils # Neutrophils # (Manual) Monocytes # (Manual) Basophils # (Manual) Metamyelocytes # (Man) Myelocytes # (Manual) Macrocytosis VBG pH VBG pCO2 VBG HCO3 Sodium Potassium Chloride Carbon Dioxide BUN Creatinine Glucose POC Glucose (mg/dL) 516 H 456 H Hemoglobin A1c Plasma Lactic Acid William 2.3 H* Phosphorus Magnesium Alkaline Phosphatase Total Protein Albumin 05/03/20 05/03/20 05/03/20 13:00 13:31 14:33 WBC RBC Hgb Hct MCV MCHC Plt Count Neutrophils # Neutrophils # (Manual) Monocytes # (Manual) Basophils # (Manual) Metamyelocytes # (Man) Myelocytes # (Manual) Macrocytosis VBG pH VBG pCO2 VBG HCO3 Sodium Potassium Chloride Carbon Dioxide 6 L* BUN 28 H Creatinine 1.43 H Glucose 374 H POC Glucose (mg/dL) 301 H 218 H Hemoglobin A1c Plasma Lactic Acid William Phosphorus 5.0 H Magnesium Alkaline Phosphatase Total Protein Albumin 05/03/20 05/03/20 05/03/20 15:45 16:59 17:29 WBC RBC Hgb Hct MCV MCHC Plt Count Neutrophils # Neutrophils # (Manual) Monocytes # (Manual) Basophils # (Manual) Metamyelocytes # (Man) Myelocytes # (Manual) Macrocytosis VBG pH VBG pCO2 VBG HCO3 Sodium Potassium Chloride 112 H Carbon Dioxide 15 L BUN 23 H Creatinine Glucose 172 H POC Glucose (mg/dL) 158 H 146 H Hemoglobin A1c Plasma Lactic Acid William Phosphorus 1.8 L Magnesium Alkaline Phosphatase Total Protein Albumin 05/03/20 05/03/20 05/03/20 18:04 19:10 20:00 WBC RBC Hgb Hct MCV MCHC Plt Count Neutrophils # Neutrophils # (Manual) Monocytes # (Manual) Basophils # (Manual) Metamyelocytes # (Man) Myelocytes # (Manual) Macrocytosis VBG pH VBG pCO2 VBG HCO3 Sodium Potassium Chloride Carbon Dioxide BUN Creatinine Glucose POC Glucose (mg/dL) 147 H 198 H 261 H Hemoglobin A1c Plasma Lactic Acid William Phosphorus Magnesium Alkaline Phosphatase Total Protein Albumin 05/03/20 05/03/20 05/03/20 20:47 22:04 23:02 WBC RBC Hgb Hct MCV MCHC Plt Count Neutrophils # Neutrophils # (Manual) Monocytes # (Manual) Basophils # (Manual) Metamyelocytes # (Man) Myelocytes # (Manual) Macrocytosis VBG pH VBG pCO2 VBG HCO3 Sodium Potassium Chloride 109 H Carbon Dioxide 9 L* BUN Creatinine Glucose 311 H POC Glucose (mg/dL) 265 H 267 H Hemoglobin A1c Plasma Lactic Acid William Phosphorus Magnesium Alkaline Phosphatase Total Protein Albumin 05/04/20 05/04/20 05/04/20 00:32 01:03 06:19 WBC RBC Hgb Hct MCV MCHC Plt Count Neutrophils # Neutrophils # (Manual) Monocytes # (Manual) Basophils # (Manual) Metamyelocytes # (Man) Myelocytes # (Manual) Macrocytosis VBG pH VBG pCO2 VBG HCO3 Sodium 135 L Potassium Chloride 108 H Carbon Dioxide 19 L BUN Creatinine Glucose 241 H POC Glucose (mg/dL) 228 H 104 H Hemoglobin A1c Plasma Lactic Acid William Phosphorus Magnesium Alkaline Phosphatase Total Protein Albumin 05/04/20 05/04/20 05/04/20 08:16 08:16 11:48 WBC 18.8 H RBC 4.03 L Hgb 12.7 L D Hct 38.6 L MCV MCHC Plt Count Neutrophils # 16.4 H Neutrophils # (Manual) Monocytes # (Manual) Basophils # (Manual) Metamyelocytes # (Man) Myelocytes # (Manual) Macrocytosis VBG pH VBG pCO2 VBG HCO3 Sodium 136 L Potassium Chloride Carbon Dioxide BUN Creatinine 0.62 L Glucose POC Glucose (mg/dL) 47 L Hemoglobin A1c Plasma Lactic Acid William Phosphorus 1.9 L Magnesium Alkaline Phosphatase Total Protein 5.5 L Albumin 3.2 L - Diagnostic Findings CT scan - chest: image reviewed (Normal chest x-ray) Assessment and Plan Assessment: Impression: Acute diabetic ketoacidosis Anion gap metabolic acidosis secondary to acute DKA. Pseudohyponatremia Type 1 diabetes History of diabetic neuropathy and retinopathy Noncompliance with insulin. Recommendation: Continue IV fluid at point normal saline, continue to follow the protocol. Patient was already transitioned to subcu insulin every one hour before meals and daily at bedtime. Consider giving Lantus insulin at night. Transfer patient out of the ICU to a regular medical floor. Possible discharge planning in a.m. Patient was advised to be more compliant with his insulin. Time with Patient: Greater than 30
[2020-05-04 13:00] LABS: Glucose,Whole Blood 130 mg/dL (75-99)
--- NOTE | 2020-05-04 13:15 | P.DS ---
Providers Date of admission: 05/03/20 09:13 Attending physician: Magaly Villa Consults: 05/03/20 09:13 Consult Physician Stat Consulting Provider: Steven Yu Reason/Comments: icu patient Do you want consulting provider notified?: Already Contacted [facility] Course: 24-year-old the present male came in for DKA patient advocate resolved at this time patient blood sugars are bit down when he used 40 units of long-acting insulin cutting down the long-acting to 30 units and patient usually does regular insulin and does carb counting take about 1 unit for 8 the grams of carb which she'll continue to do and patient will be discharged with follow with PCP in the endocrinology as an outpatient. Patient is still having some symptoms of peptic ulcer disease or gastritis patient will be given prescription for Prilosec for 14 days PHYSICAL EXAMINATION: GENERAL: The patient is alert and oriented x3, not in any acute distress. Well developed, well nourished. HEENT: Pupils are round and equally reacting to light. EOMI. No scleral icterus. No conjunctival pallor. Normocephalic, atraumatic. No pharyngeal erythema. No thyromegaly. CARDIOVASCULAR: S1 and S2 present. No murmurs, rubs, or gallops. PULMONARY: Chest is clear to auscultation, no wheezing or crackles. ABDOMEN: Soft, nontender, nondistended, normoactive bowel sounds. No palpable organomegaly. MUSCULOSKELETAL: No joint swelling or deformity. EXTREMITIES: No cyanosis, clubbing, or pedal edema. NEUROLOGICAL: Gross neurological examination did not reveal any focal deficits. SKIN: No rashes. -Diabetic ketoacidosis: -Anion gap metabolic acidosis secondary to diabetic ketoacidosis and lactic acidosis secondary to dehydration -leukocytosis reactive without any evidence of infection -Thrombocytosis: Secondary to dehydration and hemoconcentration -Patient has elevated MCV: Adryan B12 and folate levels. I from pseudohyponatremia secondary to hyperglycemia, resolved -Acute renal failure secondary to dehydration feel azotemia -Type 1 diabetes mellitus Diabetic peripheral neuropathy -Diabetic retinopathy -GI prophylaxis with the Protonix Patient Condition at Discharge: Critical Plan - Discharge Summary Discharge Rx Participant: Yes New Discharge Prescriptions: New Omeprazole [PriLOSEC] 40 mg PO -BRKFST #14 capsule. Insulin Glargine,Hum.rec.anlog [Basaglar Kwikpen U-100] 30 unit SQ HS #5 pen Discontinued Relion Novolin R 10 - 15 units SQ AC-TID Relion Novolin N 20 - 25 units SQ HS Discharge Medication List Insulin Glargine,Hum.rec.anlog [Basaglar Kwikpen U-100] 30 unit SQ HS #5 pen 05/04/20 [Rx] Omeprazole [PriLOSEC] 40 mg PO AC-BRKFST #14 capsule. 05/04/20 [Rx] Follow up Appointment(s)/Referral(s): Kaylin Krishna MD [Primary Care Provider] - 05/10/20 9:40 am Ronn Navarro MD [REFERRING] - 05/09/20 1:00 pm (New patient appointment) Patient Instructions/Handouts: Diabetic Ketoacidosis (DC) Discharge Disposition: HOME SELF-CARE
== END 2020-05-04 13:26 | disposition home or self-care (01) | DRG 638 ==
LOC: EC 06:53 → 2SICU 09:13
PROVIDERS: ADMIT Hospitalist; ATTEND Hospitalist
DX: E10.10 Type 1 diabetes mellitus with ketoacidosis without coma (principal); N17.9 Acute kidney failure, unspecified; E10.42 Type 1 diabetes mellitus with diabetic polyneuropathy; E10.319 Type 1 diabetes mellitus with unspecified diabetic retinopathy without macular edema; Z79.4 Long term (current) use of insulin; D47.3 Essential (hemorrhagic) thrombocythemia; Z20.822 Contact with and (suspected) exposure to COVID-19; R00.0 Tachycardia, unspecified; F17.200 Nicotine dependence, unspecified, uncomplicated; E87.5 Hyperkalemia; E86.0 Dehydration; D72.829 Elevated white blood cell count, unspecified; K27.9 Peptic ulcer, site unspecified, unspecified as acute or chronic, without hemorrhage or perforation; K29.70 Gastritis, unspecified, without bleeding; Z71.3 Dietary counseling and surveillance; Z91.14 Patient's other noncompliance with medication regimen; Z98.890 Other specified postprocedural states; Z83.3 Family history of diabetes mellitus; Z82.5 Family history of asthma and other chronic lower respiratory diseases
CPT/HCPCS: 36415; 71045; 80051; 80053; 82565; 82607; 82747; 82803; 82947; 83036; 83605; 83735; 84100; 84520; 85025; 87040; 87635; 93005; 96374; 99291

== ENCOUNTER 2022-03-20 07:07 | Inpatient (IN) | payer BC, OTHER ==
[2022-03-20] MEDS ORDERED: SODIUM CHLORIDE 0.9% 1,000 ML IV STA ×2 (07:08→07:37)
[2022-03-20 07:14] LABS: Glucose,Whole Blood 502 mg/dL (70-110)
--- NOTE | 2022-03-20 07:39 | ED ---
General Adult HPI - General Chief complaint: Nausea/Vomiting/Diarrhea Stated complaint: DKA Time Seen by Provider: 03/20/22 07:08 Source: patient Mode of arrival: ambulatory Limitations: no limitations - History of Present Illness Initial comments: Dictation was produced using [employer] dictation software. please excuse any grammatical, word or spelling errors. Chief Complaint: 26-year-old male presents emergency department for concerns of DKA History of Present Illness: Patient is a 26-year-old type I diabetic, insulin- dependent presents to the ER for concerns of DKA for the last 4-5 days. Complaining of nausea vomiting and total body pain. Patient states that he feels like he is in DKA. The last time he has had DKA was one year ago. Patient states he lost his insurance and has been taking [id number] insulin to try to manage his diabetes. Has not seen a physician for his diabetes in several months. He does have associated nausea and vomiting. Denies any respiratory symptoms. The ROS documented in this emergency department record has been reviewed and confirmed by me. Those systems with pertinent positive or negative responses have been documented in the HPI. All other systems are other negative and/or noncontributory. PHYSICAL EXAM: General Impression: Alert and oriented x3, mild distress secondary to pain, nausea and vomiting, smells of acetone HEENT: Normocephalic atraumatic, extra-ocular movements intact, pupils equal and reactive to light bilaterally, dry mucous membranes Cardiovascular: Heart regular rate and rhythm Chest: Able to complete full sentences, no retractions, no tachypnea Abdomen: abdomen soft, non-tender, non-distended, no organomegaly Musculoskeletal: Pulses present and equal in all extremities, no peripheral edema Motor: no focal deficits noted Neurological: CN II-XII grossly intact, no focal motor or sensory deficits noted Skin: Intact with no visualized rashes Psych: Normal affect and mood ED course: 26-year-old type I diabetic presents to the ER for concerns of DKA. Vital signs upon arrival shows heart rate of 121, rest vital signs within acceptable limits. Nursing notes and chart review was performed Laboratory evaluation obtained. CBC remarkable. Venous blood gas shows pH of 7.24 with a pCO2 of 30 and a bicarb of 12. suggests metabolic acidosis. Metabolic panel shows gap of 30, bicarb of 10. Glucose is 600. Lactic acidosis of 4.5. Other labs are negative. Patient started on DKA protocol. Case discussed with john physician, Dr. Ceballos who is willing to accept patients care. Dr. Oshea will evaluate the patient at the bedside to determine if he meets criteria for ICU admission. Was pt. sent in by a medical professional or institution? @None Did you speak to anyone other than the patient for history? @No Did you review nursing and triage notes? @Yes, agree Were old charts reviewed? @Pulmonary consultation note and history and physical from April 2020 was reviewed Differential Diagnosis? MDM Differential Weakness: Hypoglycemia, shock, sepsis, hyponatremia, anemia, infection, HI, ETOH, adverse medicine reaction, overdose, stroke. ... This is not meant to be an all-inclusiv e list EKG interpreted by me (3pts min.)? @Yes, see above X-rays interpreted by me (1pt min.)? @ [none] CT interpreted by me (1pt min.)? @ [none] U/S interpreted by me (1pt. min.)? @ [none] What testing was considered but not performed? (CT, X-rays, U/S, labs)? Why? @None What meds were considered but not given? Why? @ [none] Did you discuss the management of the patient with other professionals? @Discussed case with john physician Did you reconcile home meds? @ [none] Was smoking cessation discussed for >3mins.? @ [none] Was critical care preformed (if so, how long)? @S, 33 minutes Were there social determinants of health that impacted care today? How? (Homelessness, low income, unemployed, alcoholism, drug addiction, transportation, low edu. Level, literacy, decrease access to med. care, detention, rehab)? @No insurance and poor access to outpatient physicians Was there de-escalation of care discussed even if they declined? (Discuss DNR or withdrawal of care, Hospice)? @Not applicable What co-morbidities impacted this encounter? (DM, HTN, Smoking, COPD, CAD, Cancer, CVA, Hep., AIDS, mental health diagnosis, sleep apnea, morbid obesity)? @None Was patient admitted / discharged? @Admitted Undiagnosed new problem with uncertain prognosis? @ [none] Drug Therapy requiring intensive monitoring for toxicity (Heparin, Nitro, Insulin, Cardizem)? @Yes, metabolic monitoring Were any procedures done? @ [none] Diagnosis/symptom? @Diabetic ketoacidosis Acute, or Chronic, or Acute on Chronic? @Acute Uncomplicated (without systemic symptoms) or Complicated (systemic symptoms)? @Uncomplicated Side effects of treatment? @ [none] Exacerbation, Progression, or Severe Exacerbation] @Severe exacerbation Poses a threat to life or bodily function? @Yes - Related Data Home Medications Medication Instructions Recorded Confirmed Insulin NPH Human Isophane 30 units SQ QAM 03/20/22 03/20/22 [Novolin N] Insulin Regular, Human [Novolin R] See Protocol SQ ACHS 03/20/22 03/20/22 Allergies Allergy/AdvReac Type Severity Reaction Status Date / Time No Known Allergies Allergy Verified 03/20/22 09:15 Review of Systems ROS Statement: Those systems with pertinent positive or pertinent negative responses have been documented in the HPI. ROS Other: All systems not noted in ROS Statement are negative. Past Medical History Past Medical History: Diabetes Mellitus Additional Past Medical History / Comment(s): IDDM type I, DKA, occasional neuropathy bilateral hands/feet, decreased renal function at times. History of Any Multi-Drug Resistant Organisms: None Reported Past Surgical History: Hernia Repair Past Anesthesia/Blood Transfusion Reactions: No Reported Reaction Past Psychological History: No Psychological Hx Reported Smoking Status: Current every day smoker Past Alcohol Use History: Rare Past Drug Use History: Marijuana - Past Family History Father Family Medical History: Asthma, Diabetes Mellitus Additional Family Medical History / Comment(s): Father from Diabetic complications Mother Family Medical History: No Reported History General Exam Limitations: no limitations Course Vital Signs 03/20/22 03/20/22 07:09 07:27 Temperature 97.8 F Pulse Rate 132 H 121 H Respiratory 18 18 Rate Blood Pressure 134/86 157/88 O2 Sat by Pulse 98 100 Oximetry Medical Decision Making - Lab Data Result diagrams: 03/20/22 07:52 03/20/22 07:52 Lab Results 03/20/22 03/20/22 03/20/22 Range/Units 07:13 07:52 07:52 WBC 10.5 (3.8-10.6) k/uL RBC 4.76 (4.30-5.90) m/uL Hgb 15.1 (13.0-17.5) gm/dL Hct 46.0 (39.0-53.0) % MCV 96.6 (80.0-100.0) fL MCH 31.8 (25.0-35.0) pg MCHC 32.9 (31.0-37.0) g/dL RDW 12.3 (11.5-15.5) % Plt Count 294 (150-450) k/uL MPV 8.3 Neutrophils % 87 % Lymphocytes % 7 % Monocytes % 5 % Eosinophils % 0 % Basophils % 1 % Neutrophils # 9.1 H (1.3-7.7) k/uL Lymphocytes # 0.7 L (1.0-4.8) k/uL Monocytes # 0.5 (0-1.0) k/uL Eosinophils # 0.0 (0-0.7) k/uL Basophils # 0.1 (0-0.2) k/uL VBG pH (7.31-7.41) VBG pCO2 (37-51) mmHg VBG HCO3 (24-28) mmol/L Sodium 137 (137-145) mmol/L Potassium 5.3 H (3.5-5.1) mmol/L Chloride 97 L (98-107) mmol/L Carbon Dioxide 10 L (22-30) mmol/L Anion Gap 30 mmol/L BUN 24 H (9-20) mg/dL Creatinine 1.44 H (0.66-1.25) mg/dL Est GFR (CKD-EPI)AfAm 76 (>60 ml/min/1.73 sqM) Est GFR (CKD-EPI)NonAf 66 (>60 ml/min/1.73 sqM) Glucose 597 H* (74-99) mg/dL POC Glucose (mg/dL) 502 H (70-110) mg/dL POC Glu Dispensing Operator ID Bryan Bah Plasma Lactic Acid William (0.7-2.0) mmol/L Calcium 9.5 (8.4-10.2) mg/dL Magnesium 1.9 (1.6-2.3) mg/dL Total Bilirubin 0.7 (0.2-1.3) mg/dL AST 22 (17-59) U/L ALT 18 (4-49) U/L Alkaline Phosphatase 81 (38-126) U/L Total Protein 7.1 (6.3-8.2) g/dL Albumin 4.6 (3.5-5.0) g/dL 03/20/22 03/20/22 03/20/22 Range/Units 07:52 07:52 07:52 WBC (3.8-10.6) k/uL RBC (4.30-5.90) m/uL Hgb (13.0-17.5) gm/dL Hct (39.0-53.0) % MCV (80.0-100.0) fL MCH (25.0-35.0) pg MCHC (31.0-37.0) g/dL RDW (11.5-15.5) % Plt Count (150-450) k/uL MPV Neutrophils % % Lymphocytes % % Monocytes % % Eosinophils % % Basophils % % Neutrophils # (1.3-7.7) k/uL Lymphocytes # (1.0-4.8) k/uL Monocytes # (0-1.0) k/uL Eosinophils # (0-0.7) k/uL Basophils # (0-0.2) k/uL VBG pH 7.24 L (7.31-7.41) VBG pCO2 30 L (37-51) mmHg VBG HCO3 12 L (24-28) mmol/L Sodium (137-145) mmol/L Potassium (3.5-5.1) mmol/L Chloride (98-107) mmol/L Carbon Dioxide (22-30) mmol/L Anion Gap mmol/L BUN (9-20) mg/dL Creatinine (0.66-1.25) mg/dL Est GFR (CKD-EPI)AfAm (>60 ml/min/1.73 sqM) Est GFR (CKD-EPI)NonAf (>60 ml/min/1.73 sqM) Glucose (74-99) mg/dL POC Glucose (mg/dL) 515 H (70-110) mg/dL POC Glu Dispensing Operator ID Marichuy Bernard Plasma Lactic Acid William 4.5 H* (0.7-2.0) mmol/L Calcium (8.4-10.2) mg/dL Magnesium (1.6-2.3) mg/dL Total Bilirubin (0.2-1.3) mg/dL AST (17-59) U/L ALT (4-49) U/L Alkaline Phosphatase (38-126) U/L Total Protein (6.3-8.2) g/dL Albumin (3.5-5.0) g/dL 03/20/22 Range/Units 09:09 WBC (3.8-10.6) k/uL RBC (4.30-5.90) m/uL Hgb (13.0-17.5) gm/dL Hct (39.0-53.0) % MCV (80.0-100.0) fL MCH (25.0-35.0) pg MCHC (31.0-37.0) g/dL RDW (11.5-15.5) % Plt Count (150-450) k/uL MPV Neutrophils % % Lymphocytes % % Monocytes % % Eosinophils % % Basophils % % Neutrophils # (1.3-7.7) k/uL Lymphocytes # (1.0-4.8) k/uL Monocytes # (0-1.0) k/uL Eosinophils # (0-0.7) k/uL Basophils # (0-0.2) k/uL VBG pH (7.31-7.41) VBG pCO2 (37-51) mmHg VBG HCO3 (24-28) mmol/L Sodium (137-145) mmol/L Potassium (3.5-5.1) mmol/L Chloride (98-107) mmol/L Carbon Dioxide (22-30) mmol/L Anion Gap mmol/L BUN (9-20) mg/dL Creatinine (0.66-1.25) mg/dL Est GFR (CKD-EPI)AfAm (>60 ml/min/1.73 sqM) Est GFR (CKD-EPI)NonAf (>60 ml/min/1.73 sqM) Glucose (74-99) mg/dL POC Glucose (mg/dL) 498 H (70-110) mg/dL POC Glu Dispensing Operator ID Pedrito, Aayush Plasma Lactic Acid William (0.7-2.0) mmol/L Calcium (8.4-10.2) mg/dL Magnesium (1.6-2.3) mg/dL Total Bilirubin (0.2-1.3) mg/dL AST (17-59) U/L ALT (4-49) U/L Alkaline Phosphatase (38-126) U/L Total Protein (6.3-8.2) g/dL Albumin (3.5-5.0) g/dL Disposition Clinical Impression: DKA (diabetic ketoacidosis) Disposition: ADMITTED IP TO THIS [facility] Condition: Serious Referrals: None,Stated [Primary Care Provider] - 1-2 days Decision Time: 09:17
[2022-03-20 07:53] LABS: Glucose,Whole Blood 515 mg/dL (70-110)
[2022-03-20 08:13] LABS: VBG PH 7.24 (7.31-7.41)
[2022-03-20 08:16] LABS: Basophils # (A) 0.1 k/uL (0-0.2); Basophils % (A) 1 %; Eosinophils % (A) 0 %; HGB 15.1 gm/dL (13.0-17.5); Lymphocytes # (A) 0.7 k/uL (1.0-4.8); Lymphocytes % (A) 7 %; MCH 31.8 pg (25.0-35.0); MCHC 32.9 g/dL (31.0-37.0); MCV 96.6 fL (80.0-100.0); Mean Platelet Volume 8.3; Monocytes # (A) 0.5 k/uL (0-1.0); Monocytes % (A) 5 %; Neutrophils # (A) 9.1 k/uL (1.3-7.7); Neutrophils % (A) 87 %; Platelet Count 294 k/uL (150-450); RBC 4.76 m/uL (4.30-5.90); RDW 12.3 % (11.5-15.5); WBC 10.5 k/uL (3.8-10.6)
[2022-03-20 08:26] LABS: Albumin 4.6 g/dL (3.5-5.0); Calcium 9.5 mg/dL (8.4-10.2); Magnesium 1.9 mg/dL (1.6-2.3); Potassium 5.3 mmol/L (3.5-5.1); Total Bilirubin 0.7 mg/dL (0.2-1.3); Total Protein 7.1 g/dL (6.3-8.2)
[2022-03-20] MEDS ORDERED: INSULIN REGULAR BOLUS (FROM DRIP BAG) IV ONE (08:38)
[2022-03-20] MEDS ORDERED: Magnesium Replacement Protocol 1 EACH MISC MISCELLANE PRN (08:38)
[2022-03-20] MEDS ORDERED: Potassium Replacement Protocol 1 EACH MISC MISCELLANE PRN (08:38)
[2022-03-20] MEDS ORDERED: INSULIN REGULAR 100 UNIT in SODIUM CHLORIDE 0.9% 100 ML IV SCH (08:45)
[2022-03-20] MEDS ORDERED: SODIUM CHLORIDE 0.9% 1,000 ML IV SCH (08:45)
[2022-03-20] MEDS ORDERED: NALOXONE 0.4 MG/ML 1 ML VIAL IV PRN (09:09)
[2022-03-20 09:11] LABS: Glucose,Whole Blood 498 mg/dL (70-110)
[2022-03-20 10:05] LABS: Glucose,Whole Blood 445 mg/dL (70-110)
[2022-03-20 11:02] LABS: Glucose,Whole Blood 375 mg/dL (70-110)
[2022-03-20] MEDS ORDERED: ONDANSETRON 4 MG/2 ML VIAL IVP PRN (11:17)
[2022-03-20 11:49] LABS: Phosphorus 3.3 mg/dL (2.5-4.5); Potassium 4.3 mmol/L (3.5-5.1)
[2022-03-20 12:12] LABS: Glucose,Whole Blood 274 mg/dL (70-110)
--- NOTE | 2022-03-20 12:34 | P.CNPUL ---
History of Present Illness Consult date: 03/20/22 Requesting physician: Dalton Reynolds Reason for consult: other (DKA) Chief complaint: Nausea and vomiting History of present illness: Im evaluating this patient in the ER, for a new consult, on 03/20/2022. Patient is a known type I diabetic, managed on NPH insulin 30 units every a.m. and regu lar insulin with sliding scale before meals at bedtime. 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 He has no family doctor. He was diagnosed with type 1 diabetes at age 11. He has no other known medical history besides being a current every day cigarette smoker and sometimes marijuana smoker. Apparently, the patient was having episodes of nausea and vomiting with associated palpitation for a couple days, and this brought him into the ER. Patient denies shortness of breath, cough, fever, chest pain, hematemesis, blood in stool. His blood glucose level on arrival was 502 mg/dL. His current CBC today is unremarkable today BC count 10.5, hemoglobin 15.1, hematocrit 46, platelets 294,000. BMP shows sodium 140, potassium 4.3, chloride 107, serum CO2 13, anion gap 20, BUN 24, creatinine 1.26, glucose 359. He was positive for acetones. He is maintained on the DKA protocol with insulin running at 6 units per hour, normal saline infusing at 200 ML's per hour. He did receive 2 L normal saline bolus earlier today. Vital signs remain stable, however, heart rate is a little tachycardic at 120 bpm. Rhythm appears sinus tachycardia bedside monitor. Patient will be transferred to the ICU for closer monitoring. Review of Systems REVIEW OF SYSTEMS: CONSTITUTIONAL: Denies any recent significant weight loss or weight gain, fever. Admits to generalized weakness and fatigue EYES: Denies change in vision. EARS, NOSE, MOUTH, THROAT: Denies headaches, denies sore throat. CARDIOVASCULAR: Denies chest pain or syncopal episodes. Intermittent palpitations with activity RESPIRATORY: Denies shortness of breath, cough, congestion or hemoptysis. GASTROINTESTINAL: Denies denies abdominal pain, hematemesis, blood in stool. Admits nausea and vomiting with brown emesis. GENITOURINARY: Denies hematuria, denies infections. MUSKULOSKELETAL: Denies pain, denies swelling. INTEGUMENTARY: Denies rash, denies eczema. NEUROLOGICAL: Denies recent memory loss, no recent seizure activity. Admits bilateral lower extremity paresthesias PSYCHIATRIC: Denies anxiety, denies depression. HEMATOLOGIC/LYMPHATIC: Denies anemia, denies enlarged lymph nodes. Past Medical History Past Medical History: Diabetes Mellitus Additional Past Medical History / Comment(s): IDDM type I, DKA, occasional neuropathy bilateral hands/feet, decreased renal function at times. History of Any Multi-Drug Resistant Organisms: None Reported Past Surgical History: Hernia Repair Past Anesthesia/Blood Transfusion Reactions: No Reported Reaction Smoking Status: Current every day smoker - Past Family History Father Family Medical History: Asthma, Diabetes Mellitus Additional Family Medical History / Comment(s): Father from Diabetic complications Mother Family Medical History: No Reported History Medications and Allergies Home Medications Medication Instructions Recorded Confirmed Type Insulin NPH Human Isophane 30 units SQ QAM 03/20/22 03/20/22 History [Novolin N] Insulin Regular, Human [Novolin R] See Protocol SQ ACHS 03/20/22 03/20/22 History Allergies Allergy/AdvReac Type Severity Reaction Status Date / Time No Known Allergies Allergy Verified 03/20/22 09:15 Physical Exam Vitals: Vital Signs Temp Pulse Resp BP Pulse Ox 03/20/22 11:00 98.0 F 111 H 12 144/92 97 03/20/22 10:45 98.9 F 120 H 18 131/78 98 03/20/22 09:13 124 H 20 154/87 99 03/20/22 07:27 121 H 18 157/88 100 03/20/22 07:09 97.8 F 132 H 18 134/86 98 Intake and Output 03/19/22 03/20/22 03/20/22 22:59 06:59 14:59 Other: Weight 58.967 kg GENERAL EXAM: Alert, 26-year-old male, comfortable in no apparent distress, lying on his side in bed HEAD: Normocephalic. EYES: Normal reaction of pupils, equal size. NOSE: Clear with pink turbinates. THROAT: No erythema or exudates. NECK: No masses, no JVD. CHEST: No chest wall deformity. LUNGS: Equal air entry with no crackles, wheeze, rhonchi or dullness. CVS: S1 and S2 normal with no audible murmur, regular rhythm and tachycardic. Heart rhythm is sinus tachycardia on bedside monitor ABDOMEN: No hepatosplenomegaly, normal bowel sounds, no guarding or rigidity. Emesis basin with brown emesis at bedside SPINE: No scoliosis or deformity SKIN: No rashes CENTRAL NERVOUS SYSTEM: No focal deficits, tone is normal in all 4 extremities. EXTREMITIES: There is no peripheral edema. No clubbing, no cyanosis. Peripheral pulses are intact. Results - Laboratory Findings CBC and BMP: 03/20/22 07:52 03/20/22 11:20 Abnormal lab findings: Abnormal Labs 03/20/22 03/20/22 03/20/22 07:13 07:52 07:52 Neutrophils # 9.1 H Lymphocytes # 0.7 L VBG pH VBG pCO2 VBG HCO3 Potassium 5.3 H Chloride 97 L Carbon Dioxide 10 L BUN 24 H Creatinine 1.44 H Glucose 597 H* POC Glucose (mg/dL) 502 H Plasma Lactic Acid William 03/20/22 03/20/22 03/20/22 07:52 07:52 07:52 Neutrophils # Lymphocytes # VBG pH 7.24 L VBG pCO2 30 L VBG HCO3 12 L Potassium Chloride Carbon Dioxide BUN Creatinine Glucose POC Glucose (mg/dL) 515 H Plasma Lactic Acid William 4.5 H* 03/20/22 03/20/22 03/20/22 09:09 10:04 11:01 Neutrophils # Lymphocytes # VBG pH VBG pCO2 VBG HCO3 Potassium Chloride Carbon Dioxide BUN Creatinine Glucose POC Glucose (mg/dL) 498 H 445 H 375 H Plasma Lactic Acid William 03/20/22 11:20 Neutrophils # Lymphocytes # VBG pH VBG pCO2 VBG HCO3 Potassium Chloride Carbon Dioxide 13 L BUN 24 H Creatinine 1.26 H Glucose 359 H POC Glucose (mg/dL) Plasma Lactic Acid William Assessment and Plan Assessment: Diabetic ketoacidosis Anion gap metabolic acidosis secondary to above Type 1 diabetes mellitus Noncompliance with insulin therapy Acute kidney injury Current smoker Plan: Continue DKA protocol Continue insulin infusion Monitor for anion gap closure less than 10 and serum CO2 greater than 18 Monitor serum electrolytes, and correct hypokalemia per protocol Continue with fluid resuscitation per protocol Transfer to the ICU I have personally seen and examined the patient, performed the documentation and the assessment and plan as written. Number of minutes spent on the visit: 20. His vital changes Time with Patient: Greater than 30
[2022-03-20 12:52] LABS: Glucose,Whole Blood 255 mg/dL (70-110)
[2022-03-20] MEDS: D5-0.45% NACL WITH KCL 20MEQ/L 1,000 ML IV SCH ×2 (13:52→20:58)
[2022-03-20 14:00] VITALS: BMI 20.9
[2022-03-20 14:01] LABS: Glucose,Whole Blood 201 mg/dL (70-110)
[2022-03-20 15:03] LABS: Glucose,Whole Blood 195 mg/dL (70-110)
[2022-03-20 16:25] LABS: Glucose,Whole Blood 181 mg/dL (70-110)
[2022-03-20 17:00] LABS: Glucose,Whole Blood 154 mg/dL (70-110)
[2022-03-20 17:31] LABS: African American GFR (CKD) >90 (>60 ml/min/1.73 sqM); Anion Gap 8 mmol/L; Blood Urea Nitrogen 21 mg/dL (9-20); Carbon Dioxide 25 mmol/L (22-30); Chloride 111 mmol/L (98-107); Glucose 152 mg/dL (74-99); Non-African American GFR(CKD) >90 (>60 ml/min/1.73 sqM); Phosphorus 1.9 mg/dL (2.5-4.5); Potassium 4.4 mmol/L (3.5-5.1); Sodium 144 mmol/L (137-145)
[2022-03-20] MEDS ORDERED: ACETAMINOPHEN TAB 325 MG TAB PO PRN (17:40)
[2022-03-20] MEDS ORDERED: MELATONIN 3 MG TABLET PO PRN (17:40)
[2022-03-20] MEDS ORDERED: CALCIUM CARBONATE 500 MG CHEWABLE PO PRN (17:40)
--- NOTE | 2022-03-20 17:43 | P.HPIM ---
History of Present Illness H&P Date: 03/20/22 Patient is a 26-year-old male with PMH of type 1 diabetes mellitus, nicotine abuse that presents the ED for myalgias, nausea and vomiting. He reports symptoms has been ongoing for the past week. He reports noncompliance with his insulin regimen and diet. Patient states that he is out of insurance and unable to afford to be in the hospital. He currently reports cough productive of clear sputum which is causing him to dry heaves. He denies any headache, lower extremity edema, fever or chills, cough, chest pain, shortness breath, palpitations, changes in urination or bowel habits. No changes in appetite or weight. He denies any dizziness, numbness/weakness/tingling of the extremities. In the ED, patient was noted to be tachycardic with heart rate in the 130s. CBC was unremarkable. VBG showed pH of 7.24, pCO2 of 30 and bicarb of 12. CMP showed potassium of 5.3, chloride of 97, bicarb of 10, BUN of 24, creatinine of 1.44 and glucose of 597. Lactic acid was 4.5. Acetone was positive. Patient was admitted to ICU for management of DKA. Pertinent positives and negatives as discussed in HPI, a complete review of systems was performed and all other systems are negative. General: non toxic, no distress, appears at stated age Derm: warm, dry Head: atraumatic, normocephalic, symmetric Eyes: EOMI, no lid lag, anicteric sclera Mouth: no lip lesion, mucus membranes moist Cardiovascular: Tachycardic, no murmur, positive posterior tibial pulse bilateral Lungs: CTA bilateral, no rhonchi, no rales , no accessory muscle use Abdominal: soft, nontender to palpation, no guarding, no appreciable organomegaly Ext: no gross muscle atrophy, no edema, no contractures Neuro: CN II-XI grossly intact, no focal neuro deficits Psych: Alert, oriented, appropriate affect #Diabetic ketoacidosis #Anion gap metabolic acidosis #Nausea and vomiting Patient be continued on insulin drip. His potassium is normalized and he'll be switched to D5 half-normal saline and continued at 150 mL/h. Start telemetry monitoring. Zofran as needed for nausea and vomiting. Accu-Cheks hourly. BMP Q4H. Hypoglycemic precautions. Keep nothing by mouth and advance diet as tolera andrea. #Hyperkalemia His hyperkalemia has resolved with insulin administration. #Lactic acidosis This is likely related to severe dehydration. He'll be continued on IV hydration as above. DVT prophylaxis: SCDs Discussed with: Patient Anticipated discharge: 2-[address]: Home A total of 45 minutes was spent on the care of this complex patient more than 50% of the time was spent in counseling and care coordination. Patient states that he would like to be full code. He names his mother decision maker he can make decisions for himself. Past Medical History Past Medical History: Diabetes Mellitus Additional Past Medical History / Comment(s): IDDM type I, DKA, occasional neuropathy bilateral hands/feet, decreased renal function at times. History of Any Multi-Drug Resistant Organisms: None Reported Past Surgical History: Hernia Repair Past Anesthesia/Blood Transfusion Reactions: No Reported Reaction Smoking Status: Current every day smoker - Past Family History Father Family Medical History: Asthma, Diabetes Mellitus Additional Family Medical History / Comment(s): Father from Diabetic complications Mother Family Medical History: No Reported History Medications and Allergies Home Medications Medication Instructions Recorded Confirmed Type Insulin NPH Human Isophane 30 units SQ QAM 03/20/22 03/20/22 History [Novolin N] Insulin Regular, Human [Novolin R] See Protocol SQ ACHS 03/20/22 03/20/22 History Allergies Allergy/AdvReac Type Severity Reaction Status Date / Time No Known Allergies Allergy Verified 03/20/22 09:15 Physical Exam Vitals: Vital Signs Temp Pulse Resp BP Pulse Ox 03/20/22 15:00 100 14 145/83 96 03/20/22 14:00 97 14 135/83 96 03/20/22 13:00 103 H 14 137/86 95 03/20/22 12:00 110 H 22 144/92 95 03/20/22 11:00 98.0 F 111 H 12 144/92 97 03/20/22 10:45 98.9 F 120 H 18 131/78 98 03/20/22 09:13 124 H 20 154/87 99 03/20/22 07:27 121 H 18 157/88 100 03/20/22 07:09 97.8 F 132 H 18 134/86 98 Intake and Output 03/20/22 03/20/22 03/20/22 06:59 14:59 22:59 Intake Total 574.717 150 Output Total 500 500 Balance 74.717 -350 Intake: IV 550 150 D5-0.45% NaCl with KCl 150 150 20Meq/l 1,000 ml @ 150 mls/hr IV .Q6H40M ALEISHA Rx# :[id number] Sodium Chloride 0.9% 1, 400 000 ml @ 200 mls/hr IV . Q5H ALEISHA Rx#:[id number] Intake, IV Titration 24.717 Amount Insulin Regular 100 unit 24.717 In Sodium Chloride 0.9% 100 ml @ 0.1 UNITS/KG/HR 5.956 mls/hr IV .[id number] ALEISHA Rx#:[id number] Output: Urine 500 500 Other: Weight 58.967 kg Results CBC & Chem 7: 03/20/22 07:52 03/20/22 16:57 Labs: Abnormal Lab Results - Last 24 Hours (Table) 03/20/22 03/20/22 03/20/22 Range/Units 07:13 07:52 07:52 Neutrophils # 9.1 H (1.3-7.7) k/uL Lymphocytes # 0.7 L (1.0-4.8) k/uL VBG pH (7.31-7.41) VBG pCO2 (37-51) mmHg VBG HCO3 (24-28) mmol/L Potassium 5.3 H (3.5-5.1) mmol/L Chloride 97 L (98-107) mmol/L Carbon Dioxide 10 L (22-30) mmol/L BUN 24 H (9-20) mg/dL Creatinine 1.44 H (0.66-1.25) mg/dL Glucose 597 H* (74-99) mg/dL POC Glucose (mg/dL) 502 H (70-110) mg/dL Plasma Lactic Acid William (0.7-2.0) mmol/L Phosphorus (2.5-4.5) mg/dL 03/20/22 03/20/22 03/20/22 Range/Units 07:52 07:52 07:52 Neutrophils # (1.3-7.7) k/uL Lymphocytes # (1.0-4.8) k/uL VBG pH 7.24 L (7.31-7.41) VBG pCO2 30 L (37-51) mmHg VBG HCO3 12 L (24-28) mmol/L Potassium (3.5-5.1) mmol/L Chloride (98-107) mmol/L Carbon Dioxide (22-30) mmol/L BUN (9-20) mg/dL Creatinine (0.66-1.25) mg/dL Glucose (74-99) mg/dL POC Glucose (mg/dL) 515 H (70-110) mg/dL Plasma Lactic Acid William 4.5 H* (0.7-2.0) mmol/L Phosphorus (2.5-4.5) mg/dL 03/20/22 03/20/22 03/20/22 Range/Units 09:09 10:04 11:01 Neutrophils # (1.3-7.7) k/uL Lymphocytes # (1.0-4.8) k/uL VBG pH (7.31-7.41) VBG pCO2 (37-51) mmHg VBG HCO3 (24-28) mmol/L Potassium (3.5-5.1) mmol/L Chloride (98-107) mmol/L Carbon Dioxide (22-30) mmol/L BUN (9-20) mg/dL Creatinine (0.66-1.25) mg/dL Glucose (74-99) mg/dL POC Glucose (mg/dL) 498 H 445 H 375 H (70-110) mg/dL Plasma Lactic Acid William (0.7-2.0) mmol/L Phosphorus (2.5-4.5) mg/dL 03/20/22 03/20/22 03/20/22 Range/Units 11:20 12:11 12:50 Neutrophils # (1.3-7.7) k/uL Lymphocytes # (1.0-4.8) k/uL VBG pH (7.31-7.41) VBG pCO2 (37-51) mmHg VBG HCO3 (24-28) mmol/L Potassium (3.5-5.1) mmol/L Chloride (98-107) mmol/L Carbon Dioxide 13 L (22-30) mmol/L BUN 24 H (9-20) mg/dL Creatinine 1.26 H (0.66-1.25) mg/dL Glucose 359 H (74-99) mg/dL POC Glucose (mg/dL) 274 H 255 H (70-110) mg/dL Plasma Lactic Acid William (0.7-2.0) mmol/L Phosphorus (2.5-4.5) mg/dL 03/20/22 03/20/22 03/20/22 Range/Units 13:59 15:02 16:23 Neutrophils # (1.3-7.7) k/uL Lymphocytes # (1.0-4.8) k/uL VBG pH (7.31-7.41) VBG pCO2 (37-51) mmHg VBG HCO3 (24-28) mmol/L Potassium (3.5-5.1) mmol/L Chloride (98-107) mmol/L Carbon Dioxide (22-30) mmol/L BUN (9-20) mg/dL Creatinine (0.66-1.25) mg/dL Glucose (74-99) mg/dL POC Glucose (mg/dL) 201 H 195 H 181 H (70-110) mg/dL Plasma Lactic Acid William (0.7-2.0) mmol/L Phosphorus (2.5-4.5) mg/dL 03/20/22 03/20/22 Range/Units 16:57 16:59 Neutrophils # (1.3-7.7) k/uL Lymphocytes # (1.0-4.8) k/uL VBG pH (7.31-7.41) VBG pCO2 (37-51) mmHg VBG HCO3 (24-28) mmol/L Potassium (3.5-5.1) mmol/L Chloride 111 H (98-107) mmol/L Carbon Dioxide (22-30) mmol/L BUN 21 H (9-20) mg/dL Creatinine (0.66-1.25) mg/dL Glucose 152 H (74-99) mg/dL POC Glucose (mg/dL) 154 H (70-110) mg/dL Plasma Lactic Acid William (0.7-2.0) mmol/L Phosphorus 1.9 L (2.5-4.5) mg/dL
[2022-03-20 18:04] LABS: Glucose,Whole Blood 137 mg/dL (70-110)
[2022-03-20 19:41] LABS: Glucose,Whole Blood 121 mg/dL (70-110)
[2022-03-20] MEDS ORDERED: INSULIN NPH 100 UNIT/ML 10 ML VIAL SQ ONE (20:45)
[2022-03-20] MEDS: INSULIN ASPART (NovoLOG) 100 UNIT/ML VIAL SQ SCH (20:47)
[2022-03-20 20:58] LABS: Glucose,Whole Blood 105 mg/dL (70-110)
[2022-03-20] MEDS ORDERED: INSULIN DETEMIR (LEVEMIR) 100 UNIT/ML SYR SQ SCH (21:00)
[2022-03-21 02:03] LABS: Glucose,Whole Blood 86 mg/dL (70-110)
[2022-03-21] MEDS: D5-0.45% NACL WITH KCL 20MEQ/L 1,000 ML IV SCH ×2 (02:04→09:14)
[2022-03-21] MEDS: INSULIN ASPART (NovoLOG) 100 UNIT/ML VIAL SQ SCH ×2 (02:04→07:10)
[2022-03-21 06:47] LABS: Glucose,Whole Blood 101 mg/dL (70-110)
[2022-03-21] MEDS ORDERED: INSULIN ASPART (NovoLOG) 100 UNIT/ML VIAL SQ SCH (07:30)
[2022-03-21 07:42] LABS: Basophils # (A) 0.1 k/uL (0-0.2); Basophils % (A) 0 %; Eosinophils % (A) 0 %; HCT 34.7 % (39.0-53.0); Lymphocytes # (A) 1.3 k/uL (1.0-4.8); Lymphocytes % (A) 11 %; MCH 31.8 pg (25.0-35.0); MCHC 34.9 g/dL (31.0-37.0); Mean Platelet Volume 7.9; Monocytes # (A) 0.8 k/uL (0-1.0); Monocytes % (A) 7 %; Neutrophils # (A) 9.6 k/uL (1.3-7.7); Neutrophils % (A) 80 %; Platelet Count 247 k/uL (150-450); RBC 3.81 m/uL (4.30-5.90); RDW 12.9 % (11.5-15.5); WBC 12.1 k/uL (3.8-10.6)
[2022-03-21 07:51] LABS: HGB 12.1 gm/dL (13.0-17.5); MCV 91.1 fL (80.0-100.0)
[2022-03-21 08:02] VITALS: TEMP 98.9
[2022-03-21 08:09] LABS: African American GFR (CKD) >90 (>60 ml/min/1.73 sqM); Anion Gap 5 mmol/L; Blood Urea Nitrogen 13 mg/dL (9-20); Calcium 7.7 mg/dL (8.4-10.2); Carbon Dioxide 26 mmol/L (22-30); Chloride 105 mmol/L (98-107); Glucose 92 mg/dL (74-99); Non-African American GFR(CKD) >90 (>60 ml/min/1.73 sqM); Potassium 3.7 mmol/L (3.5-5.1); Sodium 136 mmol/L (137-145)
[2022-03-21 09:14] VITALS: RESP 16
[2022-03-21 11:00] VITALS: BP 135/80; PULSE 89
--- NOTE | 2022-03-21 13:15 | P.DS ---
Providers Date of admission: 03/20/22 09:10 Expected date of discharge: 03/21/22 Attending physician: Karis Ceballos DO Consults: 03/20/22 09:11 Consult Physician Routine Consulting Provider: Piotr Oshea Reason/Comments: dka Do you want consulting provider notified?: Yes Primary care physician: Stated None Hospital Course: Patient is a 26-year-old male with PMH of type 1 diabetes mellitus, nicotine abuse that presents the ED for myalgias, nausea and vomiting. He reports symptoms has been ongoing for the past week. He reports noncompliance with his insulin regimen and diet. Patient states that he is out of insurance and unable to afford to be in the hospital. He currently reports cough productive of clear sputum which is causing him to dry heaves. He denies any headache, lower extremity edema, fever or chills, cough, chest pain, shortness breath, palpitations, changes in urination or bowel habits. No changes in appetite or weight. He denies any dizziness, numbness/weakness/tingling of the extremities. In the ED, patient was noted to be tachycardic with heart rate in the 130s. CBC was unremarkable. VBG showed pH of 7.24, pCO2 of 30 and bicarb of 12. CMP showed potassium of 5.3, chloride of 97, bicarb of 10, BUN of 24, creatinine of 1.44 and glucose of 597. Lactic acid was 4.5. Acetone was positive. Patient was admitted to ICU for management of DKA. Patient was started on DKA protocol. His anion gap closed. His bicarb normalized. He was transitioned to subcutaneous insulin. His lactic acidosis resolved. He was cleared by pulmonology for discharge. Patient was seen and examined. No acute events overnight. He is advised to take NPH insulin 15 units twice a day with meals along with sliding scale. She states that he is testing supplies and glucometer at home. Insulin will be prescribed to the pharmacy. General: non toxic, no distress, appears at stated age Derm: warm, dry Head: atraumatic, normocephalic, symmetric Eyes: EOMI, no lid lag, anicteric sclera Mouth: no lip lesion, mucus membranes moist Cardiovascular: Normal S1 and S2, no murmur Lungs: CTA bilateral, no rhonchi, no rales , no accessory muscle use Ext: no gross muscle atrophy, no edema, no contractures Neuro: no focal neuro deficits Psych: Alert, oriented, appropriate affect Discharge diagnosis: #Diabetic ketoacidosis #Anion gap metabolic acidosis #Nausea and vomiting #Hyperkalemia #Lactic acidosis This complex discharge took 35 minutes to complete. Patient Condition at Discharge: Stable Plan - Discharge Summary Discharge Rx Participant: Yes New Discharge Prescriptions: Continue Insulin Regular, Human [Novolin R] See Protocol SQ ACHS #3 each Changed Insulin NPH Human Isophane [Novolin N] 15 units SQ BID-W/MEALS #3 each Discharge Medication List Insulin NPH Human Isophane [Novolin N] 15 units SQ BID-W/MEALS #3 each 03/21/22 [Rx] Insulin Regular, Human [Novolin R] See Protocol SQ ACHS #3 each 03/21/22 [Rx] Follow up Appointment(s)/Referral(s): Kena Navarro MD [Medical Doctor] - 1 Week None,Stated [Primary Care Provider] - 1-2 days [facility] - 1-2 days Patient Instructions/Handouts: Dehydration (GEN), Diabetic Ketoacidosis (DC) Activity/Diet/Wound Care/Special Instructions: Diet: Diabetic FU with your PCP within 1-2 days of discharge. FU with Endocrinology Dr. Navarro within 1 week of discharge. Take all medications as advised: Insulin NPH 15 units twice a day with meals. Insulin Regular sliding scale 1-2 hours before meals. (Sliding scale does should be the one you were using prior to your admission) Check your blood sugars 4 times a days. Follow up with your PCP for further titration of your insulin. Eat 3 regular meals a day. Do not take insulin for blood glucose under 100. Discharge/Stand Alone Forms: [facility] Discharge Disposition: HOME SELF-CARE
--- NOTE | 2022-03-21 15:55 | P.PN ---
Subjective Progress Note Date: 03/21/22 On 03/21/2022, the patient's anion gap is closed. The patient insists on going home. He feels he'll do better at home. He has insulin at home and he has already been transitioned to long-acting insulin here in our ICU. On today's evaluation, B is a 50 with a creatinine of 0.7 and sodium is at 136. The discomfort 12.1. The patient has been taking Glucerna shakes. Objective - Vital Signs Vital signs: Vital Signs Temp 98.9 F 03/21/22 08:00 Pulse 88 03/21/22 08:00 Resp 24 03/21/22 08:00 BP 147/97 03/21/22 08:00 Pulse Ox 95 03/21/22 08:00 FiO2 Intake & Output 03/20/22 03/21/22 03/21/22 18:59 06:59 18:59 Intake Total 1207.545 805.895 100 Output Total 1200 450 225 Balance 7.545 355.895 -125 Weight 58.967 kg 63.8 kg Intake: IV 1150 800 100 D5-0.45% NaCl with KCl 750 800 100 20Meq/l 1,000 ml @ 150 mls/hr IV .Q6H40M ALEISHA Rx# :[id number] Sodium Chloride 0.9% 1, 400 000 ml @ 200 mls/hr IV . Q5H ALEISHA Rx#:[id number] Intake, IV Titration 57.545 5.895 Amount Insulin Regular 100 unit 57.545 5.895 In Sodium Chloride 0.9% 100 ml @ 0.1 UNITS/KG/HR 5.956 mls/hr IV .[id number] ALEISHA Rx#:[id number] Output: Urine 1200 450 225 Other: Voiding Method Urinal Urinal - Exam GENERAL EXAM: Alert, 26-year-old male, comfortable in no apparent distress, lying on his side in bed HEAD: Normocephalic. EYES: Normal reaction of pupils, equal size. NOSE: Clear with pink turbinates. THROAT: No erythema or exudates. NECK: No masses, no JVD. CHEST: No chest wall deformity. LUNGS: Equal air entry with no crackles, wheeze, rhonchi or dullness. CVS: S1 and S2 normal with no audible murmur, regular rhythm and tachycardic. ABDOMEN: No hepatosplenomegaly, normal bowel sounds, no guarding or rigidity. SPINE: No scoliosis or deformity SKIN: No rashes CENTRAL NERVOUS SYSTEM: No focal deficits, tone is normal in all 4 extremities. EXTREMITIES: There is no peripheral edema. No clubbing, no cyanosis. Peripheral pulses are intact. - Labs CBC & Chem 7: 03/21/22 07:24 03/21/22 07:24 Labs: Abnormal Lab Results - Last 24 Hours (Table) 03/20/22 03/20/22 03/20/22 Range/Units 07:52 07:52 09:09 WBC (3.8-10.6) k/uL RBC (4.30-5.90) m/uL Hgb (13.0-17.5) gm/dL Hct (39.0-53.0) % Neutrophils # (1.3-7.7) k/uL Sodium (137-145) mmol/L Potassium 5.3 H (3.5-5.1) mmol/L Chloride 97 L (98-107) mmol/L Carbon Dioxide 10 L (22-30) mmol/L BUN 24 H (9-20) mg/dL Creatinine 1.44 H (0.66-1.25) mg/dL Glucose 597 H* (74-99) mg/dL POC Glucose (mg/dL) 498 H (70-110) mg/dL Plasma Lactic Acid William 4.5 H* (0.7-2.0) mmol/L Calcium (8.4-10.2) mg/dL Phosphorus (2.5-4.5) mg/dL 03/20/22 03/20/22 03/20/22 Range/Units 10:04 11:01 11:20 WBC (3.8-10.6) k/uL RBC (4.30-5.90) m/uL Hgb (13.0-17.5) gm/dL Hct (39.0-53.0) % Neutrophils # (1.3-7.7) k/uL Sodium (137-145) mmol/L Potassium (3.5-5.1) mmol/L Chloride (98-107) mmol/L Carbon Dioxide 13 L (22-30) mmol/L BUN 24 H (9-20) mg/dL Creatinine 1.26 H (0.66-1.25) mg/dL Glucose 359 H (74-99) mg/dL POC Glucose (mg/dL) 445 H 375 H (70-110) mg/dL Plasma Lactic Acid William (0.7-2.0) mmol/L Calcium (8.4-10.2) mg/dL Phosphorus (2.5-4.5) mg/dL 03/20/22 03/20/22 03/20/22 Range/Units 12:11 12:50 13:59 WBC (3.8-10.6) k/uL RBC (4.30-5.90) m/uL Hgb (13.0-17.5) gm/dL Hct (39.0-53.0) % Neutrophils # (1.3-7.7) k/uL Sodium (137-145) mmol/L Potassium (3.5-5.1) mmol/L Chloride (98-107) mmol/L Carbon Dioxide (22-30) mmol/L BUN (9-20) mg/dL Creatinine (0.66-1.25) mg/dL Glucose (74-99) mg/dL POC Glucose (mg/dL) 274 H 255 H 201 H (70-110) mg/dL Plasma Lactic Acid William (0.7-2.0) mmol/L Calcium (8.4-10.2) mg/dL Phosphorus (2.5-4.5) mg/dL 03/20/22 03/20/22 03/20/22 Range/Units 15:02 16:23 16:57 WBC (3.8-10.6) k/uL RBC (4.30-5.90) m/uL Hgb (13.0-17.5) gm/dL Hct (39.0-53.0) % Neutrophils # (1.3-7.7) k/uL Sodium (137-145) mmol/L Potassium (3.5-5.1) mmol/L Chloride 111 H (98-107) mmol/L Carbon Dioxide (22-30) mmol/L BUN 21 H (9-20) mg/dL Creatinine (0.66-1.25) mg/dL Glucose 152 H (74-99) mg/dL POC Glucose (mg/dL) 195 H 181 H (70-110) mg/dL Plasma Lactic Acid William (0.7-2.0) mmol/L Calcium (8.4-10.2) mg/dL Phosphorus 1.9 L (2.5-4.5) mg/dL 03/20/22 03/20/22 03/20/22 Range/Units 16:59 18:02 19:39 WBC (3.8-10.6) k/uL RBC (4.30-5.90) m/uL Hgb (13.0-17.5) gm/dL Hct (39.0-53.0) % Neutrophils # (1.3-7.7) k/uL Sodium (137-145) mmol/L Potassium (3.5-5.1) mmol/L Chloride (98-107) mmol/L Carbon Dioxide (22-30) mmol/L BUN (9-20) mg/dL Creatinine (0.66-1.25) mg/dL Glucose (74-99) mg/dL POC Glucose (mg/dL) 154 H 137 H 121 H (70-110) mg/dL Plasma Lactic Acid William (0.7-2.0) mmol/L Calcium (8.4-10.2) mg/dL Phosphorus (2.5-4.5) mg/dL 03/21/22 03/21/22 Range/Units 07:24 07:24 WBC 12.1 H (3.8-10.6) k/uL RBC 3.81 L (4.30-5.90) m/uL Hgb 12.1 L D (13.0-17.5) gm/dL Hct 34.7 L (39.0-53.0) % Neutrophils # 9.6 H (1.3-7.7) k/uL Sodium 136 L (137-145) mmol/L Potassium (3.5-5.1) mmol/L Chloride (98-107) mmol/L Carbon Dioxide (22-30) mmol/L BUN (9-20) mg/dL Creatinine (0.66-1.25) mg/dL Glucose (74-99) mg/dL POC Glucose (mg/dL) (70-110) mg/dL Plasma Lactic Acid William (0.7-2.0) mmol/L Calcium 7.7 L (8.4-10.2) mg/dL Phosphorus (2.5-4.5) mg/dL Assessment and Plan Plan: Diabetic ketoacidosis, recovered, Patient was transitioned to long-acting insulin with Levemir. His oral intake is still limited taking essentially Glucerna shakes Anion gap metabolic acidosis secondary to above Type 1 diabetes mellitus Noncompliance with insulin therapy Acute kidney injury, recovered Current smoker Plan Suggested discharge this patient home today and the patient is taking NPH insulin 15 is twice a day and a sliding scale coverage. He is a poorly controlled diabetic. He needs to establish himself with a primary care physician and further follow-up. The patient is an appointment with an shaft repairer within a week.
== END 2022-03-21 11:00 | disposition home or self-care (01) | DRG 638 ==
LOC: EC 07:07 → 3SCARD 09:10 → 2SICU 09:56
PROVIDERS: ADMIT Internal Medicine; ATTEND Internal Medicine
DX: E10.10 Type 1 diabetes mellitus with ketoacidosis without coma (principal); N17.9 Acute kidney failure, unspecified; N28.9 Disorder of kidney and ureter, unspecified; E10.42 Type 1 diabetes mellitus with diabetic polyneuropathy; F17.210 Nicotine dependence, cigarettes, uncomplicated; R00.0 Tachycardia, unspecified; E87.6 Hypokalemia; T38.3X6A Underdosing of insulin and oral hypoglycemic [antidiabetic] drugs, initial encounter; E86.0 Dehydration; E87.5 Hyperkalemia; Z83.3 Family history of diabetes mellitus; Z91.119 Patient's noncompliance with dietary regimen due to unspecified reason; Z91.190 Patient's noncompliance with other medical treatment and regimen due to financial hardship; Z28.310 Unvaccinated for COVID-19
CPT/HCPCS: 36415; 80048; 80051; 80053; 82009; 82565; 82803; 82947; 83605; 83735; 84100; 84520; 85025; 96360; 99291

== ENCOUNTER → 2022-11-17 | Outpatient (CLI) | payer OTHER | END | disposition home or self-care (01) | LOC: LABWHC1 10:51 | PROVIDERS: ATTEND Family Medicine | DX: E10.65 Type 1 diabetes mellitus with hyperglycemia (principal) | CPT/HCPCS: 36415; 82043; 82570; 83036 ==

== ENCOUNTER → 2024-03-07 | Outpatient (CLI) | payer OTHER ==
[2024-03-07 13:02] LABS: ALT 15 U/L (10-49); AST 20 U/L (14-35); Albumin 4.2 g/dL (3.8-4.9); Albumin/Globulin Ratio 1.91 Ratio (1.60-3.17); Alkaline Phosphatase 66 U/L (41-126); Blood Urea Nitrogen 16.8 mg/dL (9.0-27.0); Calcium 9.8 mg/dL (8.7-10.3); Carbon Dioxide 26.3 mmol/L (21.6-31.8); Chloride 106 mmol/L (96-109); Globulin 2.2 g/dL (1.6-3.3); Glucose 170 mg/dL (70-110); Sodium 141 mmol/L (135-145); Total Bilirubin 0.3 mg/dL (0.3-1.2); Total Protein 6.4 g/dL (6.2-8.2)
== END | disposition home or self-care (01) ==
LOC: LABWHC1 08:10
PROVIDERS: ATTEND Internal Medicine
DX: E10.65 Type 1 diabetes mellitus with hyperglycemia (principal)
CPT/HCPCS: 36415; 80053; 80061; 82043; 82570; 83036